=== PATIENT | female | born 1935 | race Two or more races ===

== ENCOUNTER 2024-05-11 16:04 | Inpatient (IN) | payer OTHER ==
[~2024-05-11] VITALS: Ht 154.9 cm; Wt 67.2 kg
[2024-05-11 16:10] VITALS: PULSE 158; RESP 22; O2SAT 95
[2024-05-11] MEDS: ADENOSINE 6 MG/2 ML INJ IV ONE (16:21)
[2024-05-11] MEDS: METOPROLOL TARTRATE 1MG/1ML-5ML VIAL IV ONE ×3 (16:22→16:26)
[2024-05-11] MEDS: AMIODARONE BOLUS KIT 100 ML IV ONE ×2 (16:25→16:27)
[2024-05-11] MEDS: fentaNYL CITRATE 100 MCG/2 ML VL IV ONE (16:33)
[2024-05-11] MEDS: MIDAZOLAM HCL 2MG/2ML 2ml VIAL (1mg/ml) IV ONE (16:34)
[2024-05-11] MEDS: fentaNYL CITRATE 100 MCG/2 ML VL ONE (16:35)
[2024-05-11] MEDS: MIDAZOLAM HCL 2MG/2ML 2ml VIAL (1mg/ml) ONE (16:36)
[2024-05-11] MEDS: AMIODARONE 450mg/250ml AE 250 ML IV SCH ×2 (17:07→23:02)
[2024-05-11 17:36] LABS: Basophils # (auto) 0.1 10 ^3/uL (0-0.2); Basophils % (auto) 0.8 % (0.0-2.0); Eosinophils # (auto) 0.1 10 ^3/uL (0-0.8); Eosinophils % (auto) 0.8 % (0.0-7.0); Hematocrit 40.5 % (36.0-46.0); Hemoglobin 14.4 g/dL (12.2-16.2); Lymphocytes # (auto) 0.6 10 ^3/uL (0.4-5.4); Lymphocytes % (auto) 7.7 % (10.0-50.0); Mean Corpuscular Hgb Conc. 35.6 g/dL (32.0-36.0); Mean Corpuscular Volume 86.9 fL (80.0-100.0); Monocytes # (auto) 0.6 10 ^3/uL (0-1.3); Monocytes % (auto) 6.8 % (0.0-12.0); Neutrophils % (auto) 83.9 % (37.0-80.0); Nucleated Red Blood Cells % 0.1 %; Red Blood Cells 4.65 10^6/uL (4.0-5.20); Red Cell Distribution Width 13.5 % (11.8-14.3); White Blood Cell 8.4 10^3/uL (4.4-10.8)
[2024-05-11 17:56] LABS: Alanine Aminotransferase 54 U/L (7-40); Alkaline Phosphatase 58 U/L (46-116); Anion Gap 8 (5-15); Aspartate Aminotransferase 28 U/L (13-40); BUN/Creatinine Ratio 32.9 (10.0-20.0); Blood Urea Nitrogen 23 mg/dL (9-23); Calcium 9.1 mg/dL (8.5-10.1); Carbon Dioxide 24 mmol/L (20-30); Chloride 110 mmol/L (98-107); Glucose 159 mg/dL (74-106); Magnesium 1.5 mg/dL (1.6-2.6); Potassium 2.9 mmol/L (3.5-5.1); Sodium 142 mmol/L (136-145)
[2024-05-11 17:57] LABS: Albumin 4.2 g/dL (3.2-4.8); Bilirubin, Total 0.6 mg/dL (0.2-1.0); INR 1.04 (0.9-1.15); Partial Thromboplastin Time 24.2 SEC (24.5-34.5); Total Protein 5.8 g/dL (5.7-8.2)
[2024-05-11] MEDS: MAGNESIUM SULFATE 1GM/100ML 100 ML IV ONE ×2 (18:21→23:35)
[2024-05-11] MEDS: POTASSIUM PHOSPHATE 22 MEQ in SODIUM CHL 0.9% 100 ML IV ONE (19:51)
[2024-05-11 19:56] VITALS: PULSE 93; RESP 25; O2SAT 95
[2024-05-11] MEDS: RIVAROXABAN 2.5 MG TAB PO SCH (22:23)
[2024-05-11] MEDS ORDERED: MORPHINE SULFATE INJ 2 MG/ml SYRG IV PRN ×2 (23:00)
[2024-05-11] MEDS ORDERED: ONDANSETRON HCL 4 MG/2 ML VIAL IV PRN (23:00)
[2024-05-11] MEDS ORDERED: ACETAMINOPHEN 325 MG TAB PO PRN (23:00)
[2024-05-11] MEDS ORDERED: NITROGLYCERIN 0.4 MG SL TAB SL PRN (23:00)
[2024-05-11] MEDS: SOD CHL 0.45% 1,000 ML IV SCH (23:35)
[2024-05-11] MEDS: dilTIAZem 25 MG/5 ML VIAL IV ONE (23:38)
[2024-05-12] VITALS (30 sets, daily range): BP systolic 104–154; BP diastolic 50–102; PULSE 69–104; RESP 9–29; TEMP 97.3–98.8; O2SAT 91–98
[2024-05-12] MEDS: dilTIAZem 25 MG/5 ML VIAL IV ONE (00:19)
[2024-05-12] MEDS: METOPROLOL TARTRATE 25 MG TAB PO SCH (00:41)
[2024-05-12 02:03] LABS: Basophils # (auto) 0.1 10 ^3/uL (0-0.2); Basophils % (auto) 0.7 % (0.0-2.0); Eosinophils # (auto) 0.1 10 ^3/uL (0-0.8); Eosinophils % (auto) 0.7 % (0.0-7.0); Hematocrit 39.9 % (36.0-46.0); Hemoglobin 14.3 g/dL (12.2-16.2); Lymphocytes % (auto) 9.1 % (10.0-50.0); Mean Corpuscular Hemoglobin 31.1 pg (28.0-32.0); Mean Corpuscular Hgb Conc. 35.9 g/dL (32.0-36.0); Mean Corpuscular Volume 86.6 fL (80.0-100.0); Monocytes # (auto) 0.7 10 ^3/uL (0-1.3); Monocytes % (auto) 6.8 % (0.0-12.0); Neutrophils # (auto) 8.7 10 ^3/uL (1.6-8.6); Neutrophils % (auto) 82.7 % (37.0-80.0); Nucleated Red Blood Cells % 0.2 %; Red Cell Distribution Width 13.8 % (11.8-14.3); White Blood Cell 10.5 10^3/uL (4.4-10.8)
[2024-05-12 02:11] LABS: Chloride 109 mmol/L (98-107); Potassium 2.8 mmol/L (3.5-5.1); Sodium 141 mmol/L (136-145)
[2024-05-12 02:12] LABS: Anion Gap 10 (5-15); Calcium 8.8 mg/dL (8.7-10.4); Carbon Dioxide 22 mmol/L (20-30)
[2024-05-12 02:17] LABS: BUN/Creatinine Ratio 20.3 (10.0-20.0); Blood Urea Nitrogen 12 mg/dL (9-23); Glucose 158 mg/dL (74-106)
[2024-05-12] MEDS: POTASSIUM CHL 20 Meq TABLET PO ONE (03:27)
[2024-05-12] MEDS: AMIODARONE HCL (50 MG/ ML) 3 ML VIAL IV ONE (03:57)
[2024-05-12 07:49] LABS: Potassium 3.4 mmol/L (3.5-5.1)
[2024-05-12 07:57] LABS: Magnesium 1.7 mg/dL (1.6-2.6)
[2024-05-12] MEDS: PANTOPRAZOLE 40 MG/10 ML VIAL INJ IV SCH (10:23)
[2024-05-12] MEDS: AMIODARONE 450mg/250ml AE 250 ML IV SCH (11:04)
[2024-05-12] MEDS: MAGNESIUM SULFATE 1GM/100ML 100 ML IV ONE (12:09)
[2024-05-12] MEDS: AMIODARONE HCL 200 MG TAB PO ONE (12:10)
[2024-05-12] MEDS: APIXABAN 2.5 MG TAB PO ONE (14:41)
[2024-05-12] MEDS: AMIODARONE HCL 200 MG TAB PO SCH (22:00)
[2024-05-12] MEDS: APIXABAN 2.5 MG TAB PO SCH (22:29)
[2024-05-12] MEDS ORDERED: RIVAROXABAN 2.5 MG TAB PO SCH (22:30)
[2024-05-13] VITALS (15 sets, daily range): BP systolic 99–153; BP diastolic 58–96; PULSE 78–142; RESP 19–37; TEMP 97.2–98.4; O2SAT 86–97
[2024-05-13] MEDS: DIGOXIN (250MCG/ML) 2 ML AMPULE ONE (05:26)
[2024-05-13 05:27] LABS: Basophils # (auto) 0.1 10 ^3/uL (0-0.2); Basophils % (auto) 0.4 % (0.0-2.0); Eosinophils # (auto) 0 10 ^3/uL (0-0.8); Eosinophils % (auto) 0.2 % (0.0-7.0); Hematocrit 42.8 % (36.0-46.0); Hemoglobin 15.3 g/dL (12.2-16.2); Lymphocytes # (auto) 0.6 10 ^3/uL (0.4-5.4); Lymphocytes % (auto) 4.9 % (10.0-50.0); Mean Corpuscular Hemoglobin 30.8 pg (28.0-32.0); Mean Corpuscular Hgb Conc. 35.8 g/dL (32.0-36.0); Mean Corpuscular Volume 85.8 fL (80.0-100.0); Monocytes # (auto) 0.7 10 ^3/uL (0-1.3); Monocytes % (auto) 5.2 % (0.0-12.0); Neutrophils # (auto) 11.6 10 ^3/uL (1.6-8.6); Neutrophils % (auto) 89.3 % (37.0-80.0); Red Blood Cells 4.99 10^6/uL (4.0-5.20); Red Cell Distribution Width 13.6 % (11.8-14.3); White Blood Cell 12.9 10^3/uL (4.4-10.8)
[2024-05-13] MEDS: dilTIAZem 25 MG/5 ML VIAL IV ONE ×4 (05:30→06:04)
[2024-05-13 05:44] LABS: Anion Gap 8 (5-15); Calcium 8.9 mg/dL (8.5-10.1); Carbon Dioxide 26 mmol/L (20-30); Chloride 105 mmol/L (98-107); Potassium 2.8 mmol/L (3.5-5.1); Sodium 139 mmol/L (136-145)
[2024-05-13 05:49] LABS: BUN/Creatinine Ratio 13.6 (10.0-20.0); Blood Urea Nitrogen 8 mg/dL (9-23); Glucose 153 mg/dL (74-106)
[2024-05-13] MEDS: AMIODARONE HCL (50 MG/ ML) 3 ML VIAL IV ONE ×3 (06:05→20:11)
[2024-05-13] MEDS: AMIODARONE 450mg/250ml AE 250 ML IV SCH (06:14)
[2024-05-13] MEDS: POTASSIUM CHL 20MEQ/100ML 100 ML IV SCH (07:28)
[2024-05-13] MEDS: HYDROcodone-ACET 5/325MG TAB PO PRN (09:26)
[2024-05-13] MEDS: POTASSIUM CHLORIDE 40 MEQ, LIDOCAINE 1% (LOCAL ANESTH.) 4 ML in SODIUM CHL 0.9% 250 ML IV ONE (09:28)
[2024-05-13] MEDS ORDERED: AMIODARONE 450mg/250ml AE 250 ML IV SCH (12:15)
[2024-05-13] MEDS: METOPROLOL SUCCINATE XL 50 MG TAB PO ONE (15:03)
[2024-05-13] MEDS: hydrALAZINE HCL 20 MG/ML VL IV PRN (16:14)
[2024-05-13] MEDS: DOCUSATE SOD 100 MG CAP PO PRN (17:28)
[2024-05-14] VITALS (20 sets, daily range): BP systolic 123–167; BP diastolic 62–92; PULSE 61–112; RESP 16–35; TEMP 97.9–98.8; O2SAT 90–99
[2024-05-14] MEDS: AMIODARONE HCL (50 MG/ ML) 3 ML VIAL IV ONE ×2 (05:33→05:40)
[2024-05-14 05:51] LABS: Eosinophils # (auto) 0 10 ^3/uL (0-0.8); Eosinophils % (auto) 0.2 % (0.0-7.0); Lymphocytes # (auto) 0.6 10 ^3/uL (0.4-5.4); Monocytes # (auto) 0.9 10 ^3/uL (0-1.3)
[2024-05-14 06:29] LABS: Anion Gap 7 (5-15); Calcium 9.1 mg/dL (8.5-10.1); Carbon Dioxide 24 mmol/L (20-30); Chloride 105 mmol/L (98-107); Potassium 3.2 mmol/L (3.5-5.1); Sodium 136 mmol/L (136-145)
[2024-05-14 06:35] LABS: BUN/Creatinine Ratio 14.8 (10.0-20.0); Blood Urea Nitrogen 8 mg/dL (9-23); Glucose 145 mg/dL (74-106)
[2024-05-14 07:21] LABS: Basophils # (auto) 0.1 10 ^3/uL (0-0.2); Basophils % (auto) 0.4 % (0.0-2.0); Hematocrit 42.1 % (36.0-46.0); Hemoglobin 14.7 g/dL (12.2-16.2); Lymphocytes % (auto) 4.4 % (10.0-50.0); Mean Corpuscular Hemoglobin 30.5 pg (28.0-32.0); Mean Corpuscular Volume 87.3 fL (80.0-100.0); Monocytes % (auto) 6.2 % (0.0-12.0); Neutrophils # (auto) 12.5 10 ^3/uL (1.6-8.6); Neutrophils % (auto) 88.8 % (37.0-80.0); Red Blood Cells 4.82 10^6/uL (4.0-5.20); Red Cell Distribution Width 13.8 % (11.8-14.3); White Blood Cell 14.1 10^3/uL (4.4-10.8)
[2024-05-14] MEDS: METOPROLOL TARTRATE 25 MG TAB PO SCH (09:52)
[2024-05-14] MEDS: MAGNESIUM OXIDE 400 MG TAB PO ONE (14:45)
[2024-05-14] MEDS: POTASSIUM CHL 20 Meq TABLET PO ONE (14:45)
[2024-05-14] MEDS: FUROSEMIDE 40 MG/4 ML VIAL IV ONE (15:51)
[2024-05-14] MEDS: MAGNESIUM SULFATE 1GM/100ML 100 ML IV SCH (15:52)
[2024-05-14] MEDS: AMIODARONE 450mg/250ml AE 250 ML IV SCH (15:53)
[2024-05-14] MEDS: HYALURONIDASE 150 UNIT/1 ML SUBCUT ONE (17:19)
[2024-05-14] MEDS: POTASSIUM CHLORIDE 40 MEQ, LIDOCAINE 1% (LOCAL ANESTH.) 4 ML in SODIUM CHL 0.9% 250 ML IV ONE (20:04)
[2024-05-15] VITALS (7 sets, daily range): BP systolic 132–171; BP diastolic 68–94; PULSE 59–96; RESP 16–20; TEMP 97.4–98.6; O2SAT 90–94
[2024-05-15 05:57] LABS: Basophils # (auto) 0.1 10 ^3/uL (0-0.2); Basophils % (auto) 0.6 % (0.0-2.0); Eosinophils # (auto) 0 10 ^3/uL (0-0.8); Eosinophils % (auto) 0.3 % (0.0-7.0); Hematocrit 40.6 % (36.0-46.0); Hemoglobin 14.3 g/dL (12.2-16.2); Lymphocytes # (auto) 0.8 10 ^3/uL (0.4-5.4); Lymphocytes % (auto) 5.3 % (10.0-50.0); Mean Corpuscular Hemoglobin 30.5 pg (28.0-32.0); Mean Corpuscular Hgb Conc. 35.2 g/dL (32.0-36.0); Mean Corpuscular Volume 86.8 fL (80.0-100.0); Monocytes # (auto) 0.8 10 ^3/uL (0-1.3); Neutrophils # (auto) 12.4 10 ^3/uL (1.6-8.6); Neutrophils % (auto) 87.8 % (37.0-80.0); Nucleated Red Blood Cells % 0.2 %; Red Blood Cells 4.68 10^6/uL (4.0-5.20); Red Cell Distribution Width 14.1 % (11.8-14.3); White Blood Cell 14.1 10^3/uL (4.4-10.8)
[2024-05-15 06:11] LABS: Chloride 105 mmol/L (98-107); Potassium 3.1 mmol/L (3.5-5.1)
[2024-05-15 06:12] LABS: Calcium 9.1 mg/dL (8.5-10.1)
[2024-05-15 06:17] LABS: BUN/Creatinine Ratio 20.3 (10.0-20.0); Blood Urea Nitrogen 12 mg/dL (9-23); Glucose 144 mg/dL (74-106)
[2024-05-15 06:20] LABS: Carbon Dioxide 26 mmol/L (20-30)
[2024-05-15 07:05] LABS: Anion Gap 5 (5-15); Sodium 136 mmol/L (136-145)
[2024-05-15] MEDS ORDERED: AMLO1TAB22 PO (16:34)
[2024-05-15] MEDS ORDERED: CLON0.1T PO (16:34)
[2024-05-15] MEDS ORDERED: MET25T PO (16:34)
[2024-05-15] MEDS ORDERED: NAP500T PO (16:34)
[2024-05-15] MEDS ORDERED: POTA-228 PO (16:34)
[2024-05-15] MEDS ORDERED: HYDR25TA4 PO (16:34)
[2024-05-15] MEDS: AMIODARONE HCL 200 MG TAB PO ONE (21:28)
[2024-05-16 01:00] VITALS: BP 163/81; PULSE 80; RESP 18; TEMP 97.3; O2SAT 96
[2024-05-16 05:00] VITALS: BP 173/87; PULSE 89; RESP 18; TEMP 97.3; O2SAT 95
[2024-05-16 06:57] LABS: Chloride 102 mmol/L (98-107); Potassium 3.1 mmol/L (3.5-5.1); Sodium 137 mmol/L (136-145)
[2024-05-16 06:58] LABS: Anion Gap 7 (5-15); Calcium 9.3 mg/dL (8.7-10.4); Carbon Dioxide 28 mmol/L (20-30)
[2024-05-16 07:03] LABS: Blood Urea Nitrogen 12 mg/dL (9-23); Glucose 136 mg/dL (74-106)
[2024-05-16 07:33] LABS: Basophils # (auto) 0.1 10 ^3/uL (0-0.2); Basophils % (auto) 0.7 % (0.0-2.0); Eosinophils # (auto) 0 10 ^3/uL (0-0.8); Eosinophils % (auto) 0.3 % (0.0-7.0); Hematocrit 43.4 % (36.0-46.0); Hemoglobin 15.2 g/dL (12.2-16.2); Lymphocytes # (auto) 0.5 10 ^3/uL (0.4-5.4); Lymphocytes % (auto) 3.8 % (10.0-50.0); Mean Corpuscular Hemoglobin 30.4 pg (28.0-32.0); Mean Corpuscular Hgb Conc. 35.1 g/dL (32.0-36.0); Mean Corpuscular Volume 86.8 fL (80.0-100.0); Monocytes # (auto) 0.7 10 ^3/uL (0-1.3); Monocytes % (auto) 4.9 % (0.0-12.0); Neutrophils # (auto) 12.7 10 ^3/uL (1.6-8.6); Neutrophils % (auto) 90.3 % (37.0-80.0); Nucleated Red Blood Cells % 0.1 %; Red Cell Distribution Width 13.9 % (11.8-14.3); White Blood Cell 14.1 10^3/uL (4.4-10.8)
[2024-05-16 08:00] VITALS: PULSE 109
[2024-05-16 09:00] VITALS: BP 170/65; PULSE 92; RESP 16; TEMP 98.3; O2SAT 93
[2024-05-16] MEDS: AMIODARONE HCL 200 MG TAB PO SCH (10:02)
[2024-05-16 13:00] VITALS: BP 181/88; PULSE 74; RESP 16; TEMP 98.9; O2SAT 90
[2024-05-16] MEDS: POTASSIUM CHL 20 Meq TABLET PO ONE (14:43)
[2024-05-16] MEDS ORDERED: AMIO200T13 PO (16:30)
[2024-05-16] MEDS ORDERED: APIX2.5T PO (16:30)
[2024-05-16] MEDS ORDERED: MET25T PO (16:30)
[2024-05-16 16:34] VITALS: BP 169/79; PULSE 61; RESP 18; TEMP 98; O2SAT 9
== END 2024-05-16 20:30 | disposition hospice, home (50) | DRG 291 ==
LOC: EDBD 16:04 → ER 16:12 → TELE 23:10 → DOU IN ICU 23:10 → TELE-WESTW 05-14 17:40
PROVIDERS: ADMIT Nurse Practitioner Family; ATTEND Internal Medicine
PROC: 5A2204Z Restoration of Cardiac Rhythm, Single (ICD-10-PCS; principal; 2024-05-11)
DX: I11.0 Hypertensive heart disease with heart failure (principal); I50.43 Acute on chronic combined systolic (congestive) and diastolic (congestive) heart failure; I48.20 Chronic atrial fibrillation, unspecified; J98.11 Atelectasis; I48.92 Unspecified atrial flutter; I47.10 Supraventricular tachycardia, unspecified; E87.6 Hypokalemia; E78.5 Hyperlipidemia, unspecified; E83.42 Hypomagnesemia; I34.0 Nonrheumatic mitral (valve) insufficiency
CPT/HCPCS: 36415; 71045; 80048; 80053; 82962; 83735; 83880; 84132; 84443; 84484; 85025; 85610; 85730; 87081; 93005; 93306; 99291; C9113; G0378; J2001; J2250; J3470; J3480

== ENCOUNTER 2025-06-23 14:03 | Inpatient (IN) | payer OTHER ==
[~2025-06-23] VITALS: Ht 157.5 cm; Wt 59.2 kg
[~2025-06-23 14:03] MED LIST: AMIO200T13 PO; APIX2.5T PO; MET25T PO
[2025-06-23] MEDS ORDERED: SODIUM CHLORIDE 0.9% 1,000 ML IV ONE (14:15)
--- NOTE | 2025-06-23 14:19 | ED.PDOC ---
GI ASSESSMENT HPI Comments This is an 89 year-olf female, with a PMHX of HTN, Breast cancer, and Neuropathy, who presents to the ED via EMS with a chief complaint of RLQ abdominal pain with associated N/V for X3 days. Patient reports RLQ abdominal pain radiates throughout lower abdomen with no associated alleviating factors. Per EMS, patients vitals are stable with a normal temperature of 97.8F. Patient has no further complaints at this time and otherwise denies further associated symptoms of chest pain, dizziness, back pain, diarrhea, fever, or chills. Chief Complaint: N/V Time Seen by MD: 14:11 Primary Care Provider: UNKNOWN Reviewed Notes: Repeater Operator Notes, Medications, Allergies Allergies: Coded Allergies: NO KNOWN ALLERGIES (Unverified , 05/11/24) Home Meds Active Scripts Metoprolol Tartrate (Lopressor) 25 Mg Tb, 50 MG PO BID for 30 Days, #120 TAB Prov:LISSY MINOR MD 05/16/24 Apixaban Base (ELIQUIS) 2.5 Mg Tab, 2.5 MG PO BID, #60 TAB Prov:LISSY MINOR MD 05/16/24 Amiodarone HCl (Amiodarone HCl) 200 Mg Tab, 200 MG PO BID, #60 TAB Prov:LISSY MINOR MD 05/16/24 Information Source: Patient, Emergency Med Personnel Mode of Arrival: EMS Timing: Days Duration: Since onset Prehospital treatment: 12 Lead EKG, Other (Temp 97.8F) Severity: Moderate Associated sign and symptoms: Nausea, Vomiting, Abdominal Pain Past Medical History PAST MEDICAL HISTORY: HTN Past Medical History (Other): Breast Cancer, Neuropathy Surgical History: Denies all surgeries TOBACCO SAMPLE P[employer]ER History: Unknown Family History Family History: Unknown Social History Smoker: Non-Smoker Alcohol: Denies ETOH Use Drugs: Denies Drug Use Lives In: Home Constitutional: denies: chills, diaphoresis, fatigue, fever, malaise, sweats, weakness, others EENTM: denies: blurred vision, double vision, ear bleeding, ear discharge, ear drainage, ear pain, ear ringing, eye pain, eye redness, hearing loss, mouth pain, mouth swelling, nasal discharge, nose bleeding, nose congestion, nose pain, photophobia, tearing, throat pain, throat swelling, voice changes, others Respiratory: denies: cough, hemoptysis, orthopnea, SOB at rest, shortness of breath, SOB with excertion, stridor, wheezing, others Cardiovascular: denies: chest pain, dizzy spells, diaphoresis, Dyspnea on exertion, edema, irregular heart beat, left arm pain, lightheadedness, palpitations, PND, syncope, others Gastrointestinal: reports: abdominal pain, nausea, vomiting; denies: abdomen distended, blood streaked bowels, constipated, diarrhea, dysphagia, difficulty swallowing, hematemesis, melena, poor appetite, poor fluid intake, rectal bleeding, rectal pain, others Genitourinary: denies: abnormal vagina bleeding, burning, dyspareunia, dysuria, flank pain, frequency, hematuria, incontinence, pain, , vagina discharge, urgency, others Neurological: denies: dizziness, fainting, headache, left sided numbness, left sided weakness, numbness, paresthesia, pre-existing deficit, right sided numbness, right sided weakness, seizure, speech problems, tingling, tremors, weakness, others Musculoskeletal: denies: back pain, gout, joint pain, joint swelling, muscle pain, muscle stiffness, neck pain, others Integumetry: denies: bruises, change in color, change in hair/nails, dryness, laceration, lesions, lumps, rash, wounds, others Allergic/Immunocompromised: denies: Difficulty Healing, Frequent Infections, Hives, Itching, others Hematologic/Lymphatic: denies: anemia, blood clots, easy bleeding, easy bruising, swollen glands, others Endocrine: denies: excessive hunger, excessive sweating, excessive thirst, excessive urination, flushing, intolerance to cold, intolerance to heat, unexplained weight gain, unexplained weight loss, others Psychiatric: denies: anxiety, bipolar disorder, depression, hopeless, panic disorder, schizophrenia, sleepless, suicidal, others All Other Systems: Reviewed and Negative Physical Exam General Appearance: Moderate Distress HEENT: Normal ENT Inspection, Pharynx Normal, TMs Normal Neck: Full Range of Motion, Non-Tender, Normal, Normal Inspection Respiratory: Chest Non-Tender, Lungs Clear, No Accessory Muscle Use, No Respiratory Distress, Normal Breath Sounds Cardiovascular: No Edema, No JVD, No Murmur, No Gallop, Normal Peripheral Pulses, Regular Rate/Rhythm Breast Exam: Deferred Gastrointestinal: No Organomegaly, Non Tender, No Pulsatile Mass, Normal Bowel Sounds, Soft Genitalia: Deferred Pelvic: Deferred Rectal: Deferred Extremities: No calf tenderness, Normal capillary refill, Normal inspection, Normal range of motion, Non-tender, No pedal edema Musculoskeletal : Apperance: Normal Neurologic: Alert, retail salesman II-XII nml as Tested, No Motor Deficits, Normal Affect, Normal Mood, No Sensory Deficits Cerebellar Function: NOT DONE Reflexes: NOT DONE Skin: Dry, Normal Color, Warm Peripheral Pulses: 3+ Radial (R), 3+ Radial (L) Lymphatic: No Adenopathy Was a procedure done? Was a procedure done?: No GI differential Dx Differential Diagnosis: Constipation, Diverticular disease, Esophagitis, Gastritis/PUD, Gastroenteritis, UTI, Food Poisoning, Bacterial, Parasitic, Viral X-Ray, Labs, Meds, VS Vital Signs Date Time Temp Pulse Resp B/P (MAP) Pulse Ox O2 Delivery O2 Flow Rate FiO2 06/23/25 17:00 99.3 98 17 196/99 (131) 99 99.3 06/23/25 16:07 199/93 06/23/25 15:07 192/89 06/23/25 14:59 74 17 95 Room Air 06/23/25 14:59 98.5 74 17 182/93 (122) 95 98.5 192/89 (123) 06/23/25 14:42 84 06/23/25 14:15 97.8 82 22 172/92 99 97.8 06/23/25 14:15 97.8 72 22 172/92 (118) 99 97.8 Lab Test 06/23/25 14:17 Range/Units White Blood Count 10.8 4.4-10.8 10^3/uL Red Blood Count 5.15 4.0-5.20 10^6/uL Hemoglobin 16.1 12.2-16.2 g/dL Hematocrit 45.0 36.0-46.0 % Mean Corpuscular Volume 87.5 80.0-100.0 fL Mean Corpuscular Hemoglobin 31.4 28.0-32.0 pg Mean Corpuscular Hemoglobin Concent 35.8 32.0-36.0 g/dL Red Cell Distribution Width 14.0 11.8-14.3 % Platelet Count 191 140-450 10^3/uL Mean Platelet Volume 7.1 6.9-10.8 fL Neutrophils (%) (Auto) 87.3 H 37.0-80.0 % Lymphocytes (%) (Auto) 5.9 L 10.0-50.0 % Monocytes (%) (Auto) 6.1 0.0-12.0 % Eosinophils (%) (Auto) 0.1 0.0-7.0 % Basophils (%) (Auto) 0.6 0.0-2.0 % Neutrophils # (Auto) 9.5 H 1.6-8.6 10 ^3/uL Lymphocytes # (Auto) 0.6 0.4-5.4 10 ^3/uL Monocytes # (Auto) 0.7 0-1.3 10 ^3/uL Eosinophils # (Auto) 0 0-0.8 10 ^3/uL Basophils # (Auto) 0.1 0-0.2 10 ^3/uL Nucleated Red Blood Cells 0.3 % Sodium Level 143 136-145 mmol/L Potassium Level 2.7 L 3.5-5.1 mmol/L Chloride Level 100 98-107 mmol/L Carbon Dioxide Level 30 20-31 mmol/L Anion Gap 13 5-15 Blood Urea Nitrogen 17 9-23 mg/dL Creatinine 0.76 0.550-1.02 mg/dL Glomerular Filtration Rate Calc 76 >90 mL/min BUN/Creatinine Ratio 22.4 H 10.0-20.0 Serum Glucose 150 H 74-106 mg/dL Calcium Level 9.7 8.7-10.4 mg/dL Current Medications Medications (Trade) Dose Ordered Sig/Dagoberto Route Start Time Stop Time Status Last Admin Sodium Chloride 500 ml @ 500 mls/hr Q1H ONCE IV 06/23/25 14:30 06/23/25 15:29 DC 06/23/25 14:42 Clonidine HCl (Catapres Tablet) 0.2 mg ONCE ONCE PO 06/23/25 15:15 06/23/25 15:16 DC 06/23/25 15:07 Potassium Bicarbonate (Klor-Con/Ef) 50 meq ONCE ONCE PO 06/23/25 15:30 06/23/25 15:31 DC 06/23/25 15:21 Ondansetron HCl (Zofran) 4 mg ONCE ONCE IV 06/23/25 16:45 06/23/25 16:46 DC 06/23/25 17:00 Patient alert. Complaining of nausea vomiting. WBC within normal limits. Vitals stable. Hemoglobin within normal limits. She just had another vomiting episode in the ER. Establish intravenous access. Was given fluids. Blood pressure elevated. Was given clonidine. Potassium is low. Was given potassium. CT scan of the abdomen reviewed does show colitis. Was given Zosyn. Explained to the patient. Continue monitoring. Time of 1ST Reevaluation: 14:58 Reevaluation 1ST: Unchanged Patient Education/Counseling: Diagnosis, Treatment Family Education/Counseling: No Family Present SEPSIS Sepsis Screen Physician Orders Urinalysis (06/23/25 14:10) Electrocardigram (06/23/25 14:39) Ct Ab Pel Wo Con-No Oral Or Iv (06/23/25 16:26) Vital Signs Date Time Temp Pulse Resp B/P (MAP) Pulse Ox O2 Delivery O2 Flow Rate FiO2 06/23/25 17:00 99.3 98 17 196/99 (131) 99 99.3 06/23/25 16:07 199/93 06/23/25 15:07 192/89 06/23/25 14:59 74 17 95 Room Air 06/23/25 14:59 98.5 74 17 182/93 (122) 95 98.5 192/89 (123) 06/23/25 14:42 84 06/23/25 14:15 97.8 82 22 172/92 99 97.8 06/23/25 14:15 97.8 72 22 172/92 (118) 99 97.8 Laboratory Tests Test 06/23/25 14:17 White Blood Count 10.8 10^3/uL (4.4-10.8) Medications Medications Dose Ordered Sig/Dagoberto Route Start Time Stop Time Status Last Admin Dose Admin Clonidine HCl 0.2 mg ONCE ONCE PO 06/23/25 15:15 06/23/25 15:16 DC 06/23/25 15:07 Ondansetron HCl 4 mg ONCE ONCE IV 06/23/25 16:45 06/23/25 16:46 DC 06/23/25 17:00 Potassium Bicarbonate 50 meq ONCE ONCE PO 06/23/25 15:30 06/23/25 15:31 DC 06/23/25 15:21 Sodium Chloride 500 ml @ 500 mls/hr Q1H ONCE IV 06/23/25 14:30 06/23/25 15:29 DC 06/23/25 14:42 Departure 1 Departure Time of Disposition: 16:25 Impression: Primary Impression: Hypokalemia Additional Impressions: Nausea & vomiting Qualified Codes: R11.2 - Nausea with vomiting, unspecified Uncontrolled diabetes mellitus Qualified Codes: E13.65 - Other specified diabetes mellitus with hyperglycemia Non-specific colitis Disposition: ADMITTED INPATIENT Admit to: Med Surg Condition: Guarded Critical Care Note Critical Care Time?: No Stability Stability form required: No Heart Score Heart Score: Heart Score Response (Comments) Value History Slightly Suspicious 0 EKG N/A 0 Age >65 2 Risk Factors 1 or 2 risk factors 1 Troponin Normal limit 0 Total 3 I personally scribed for RAIZA BUENROSTRO MD ([facility]) on 06/23/25 at 14:19. Electronically submitted by Ary Mccall ([facility]). RAIZA BUENROSTRO MD Jun 23, 2025 14:19
[2025-06-23 14:31] LABS: Hematocrit 45.0 % (36.0-46.0); Hemoglobin 16.1 g/dL (12.2-16.2); Mean Corpuscular Hemoglobin 31.4 pg (28.0-32.0); Mean Corpuscular Volume 87.5 fL (80.0-100.0); Nucleated Red Blood Cells % 0.3 %
[2025-06-23] MEDS: SODIUM CHLORIDE 0.9% 500 ML IV ONE (14:42)
[2025-06-23 14:43] LABS: Chloride 100 mmol/L (98-107); Sodium 143 mmol/L (136-145)
[2025-06-23 14:44] LABS: Anion Gap 13 (5-15); Calcium 9.7 mg/dL (8.7-10.4); Carbon Dioxide 30 mmol/L (20-31)
[2025-06-23 14:49] LABS: BUN/Creatinine Ratio 22.4 (10.0-20.0); Blood Urea Nitrogen 17 mg/dL (9-23)
[2025-06-23 14:50] LABS: Glucose 150 mg/dL (74-106); Potassium 2.7 mmol/L (3.5-5.1)
[2025-06-23] MEDS: POTASSIUM EFFERVESENT TAB 25 MEQ PO ONE (15:21)
[2025-06-23] MEDS: ONDANSETRON HCL 4 MG/2 ML VIAL IV ONE (17:00)
--- NOTE | 2025-06-23 17:04 | DVH ---
Exam: CT CT AB PEL WO CON-NO ORAL OR IV History: nv Comparison Study: None TECHNIQUE: Multidetector CT of the abdomen was performed from lung bases to pubic symphysis. Imaging was performed without IV contrast. Axial, coronal and sagittal multiplanar reformats were obtained fr om the axial data set by the technologist. Radiation Dose Information: CT Dose: CTDI volume is 7.07 mGy. Dose-length product is 301.02 mGy*cm FINDINGS: Evaluation of solid organs is limited due to lack of intravenous contrast use. Findings: Lung Bases: Bibasilar airspace disease no prior studies for comparison. Normal heart size. No pleura l or pericardial effusion. Liver: The liver is normal in size. No focal lesions. Gallbladder and Biliary Tree: Unremarkable Spleen: Spleen measures 14.8 cm long consistent with splenomegaly. Pancreas: The pancreas is grossly normal in appearance. Adrenal Glands: Unremarkable Kidneys: Kidneys are grossly normal without calculi or hydronephrosis. Bladder: Grossly unremarkable for degree of distention. Bowel: The stomach is grossly normal in appearance. Small bowel and colon are normal in caliber and d istribution. Mild thickening of the wall of the colon measuring 8-9 mm. There is also stool in the co patricia. The appendix is not visualized; however, no secondary findings of acute appendicitis identified. Ascites: Absent Lymphadenopathy: No mesenteric, retroperitoneal or periportal lymphadenopathy. Abdominal Wall and Mesentery: Unremarkable. Vasculature: The visualized abdominal aorta is normal in size and caliber. Evaluation of abdominal a nd pelvic vessels is limited due to lack of intravenous contrast. Pelvic Organs: Unremarkable Musculoskeletal: No aggressive focal bony lesions, acute fractures or dislocation. Soft tissues: Unremarkable IMPRESSION: 1. Thickening of the wall of the colon measuring 8-9 mm with stool in the lumen. Questionable colitis . Correlate with the clinical setting. 2. Splenomegaly with the spleen measuring 14.8 cm long. HS:Y Radiation optimization: All CT scans at this facility use at least one of these dose optimization argelia hniques: automated exposure control mA and/or kV adjustment per patient size (includes targeted exam s where dose is matched to clinical indication) or iterative reconstruction.
[2025-06-23] MEDS: PIPERACILLIN-TAZOB 3.375GM 100 ML IV ONE (17:33)
[2025-06-23] MEDS ORDERED: MORPHINE SULFATE INJ 2 MG/ml SYRG IV PRN (17:45)
[2025-06-23] MEDS ORDERED: ACETAMINOPHEN 325 MG TAB PO PRN (17:45)
[2025-06-23] MEDS ORDERED: NITROGLYCERIN 0.4 MG SL TAB SL PRN (17:45)
--- NOTE | 2025-06-23 17:45 | DVHHP2 ---
History of Present Illness Reason for Visit: Abdominal pain nausea vomiting for last three days History of Present Illness 89-year-old female with a known history of hypertension, known history of breast cancer status post chemoradiation in the past presented to the hospital with abdominal pain nausea vomiting generalized weakness found to have colitis. Patient currently still complaining of nausea abdominal pain denies any vomiting no fever no chills. Denies any previous episode of similar kind. Cardiovascular: HTN Past Surgical History: Other (Left breast lumpectomy) Family History: None Smoke: No ALCOHOL: none Drugs: None Review of Systems Review of Systems Other review of system were negative except mentioned above. 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0 % Basophils (%) (Auto) 0.6 0.0-2.0 % Neutrophils # (Auto) 9.5 H 1.6-8.6 10 ^3/uL Lymphocytes # (Auto) 0.6 0.4-5.4 10 ^3/uL Monocytes # (Auto) 0.7 0-1.3 10 ^3/uL Eosinophils # (Auto) 0 0-0.8 10 ^3/uL Basophils # (Auto) 0.1 0-0.2 10 ^3/uL Nucleated Red Blood Cells 0.3 % Sodium Level 143 136-145 mmol/L Potassium Level 2.7 L 3.5-5.1 mmol/L Chloride Level 100 98-107 mmol/L Carbon Dioxide Level 30 20-31 mmol/L Anion Gap 13 5-15 Blood Urea Nitrogen 17 9-23 mg/dL Creatinine 0.76 0.550-1.02 mg/dL Glomerular Filtration Rate Calc 76 >90 mL/min BUN/Creatinine Ratio 22.4 H 10.0-20.0 Serum Glucose 150 H 74-106 mg/dL Calcium Level 9.7 8.7-10.4 mg/dL SEPSIS Sepsis Screen Date sepsis recognized/suspect: Jun 23, 2025 Time Sepsis recognized/suspect: 1414 Recent Procedure: No On Antibiotic Therapy: No Respiratory Rate >20: Yes Heart Rate >90: No Temp<36 C (96.8 F) or >38.3 C: No SBP <90 or MAP <65 mmHG: No New Acute Mental Status Change: No Is the patient on CPAP, BIPAP,: No Physician Orders Urinalysis (06/23/25 14:10) Electrocardigram (06/23/25 14:39) Ct Ab Pel Wo Con-No Oral Or Iv (06/23/25 16:26) Piperacillin-Tazob 3.375gm (Zosyn 3.375g (06/23/25 17:30) Admit (06/23/25 17:39) Code Status (06/23/25 17:39) 0.9% Ns 1000 Ml (06/23/25 17:45) Hydrocodone-Acet 5/325mg Tab ([place] 5/32 (06/23/25 17:45) Ondansetron Hcl (Zofran) (06/23/25 17:45) Complete Blood Count (06/24/25 04:00) Comprehensive Metabolic Panel (06/24/25 04:00) Pt Request For Service (06/23/25 17:39) Condition: Fair (06/23/25 17:39) Enoxaparin Sodium (Lovenox) (06/24/25 10:00) Acetaminophen Tablet (Tylenol Tablet) (06/23/25 17:45) Clear Liq Diet (06/23/25 Dinner) Morphine Sulfate Injection (06/23/25 17:45) Nitroglycerin Sublingual (Ntrostat Subli (06/23/25 17:45) Morphine Sulfate Injection (06/23/25 17:45) Stat Ekg For Chest Pain (06/23/25 17:39) Notify Of Changes From Base (06/23/25 17:39) Quill Reamer For 24 Hours (06/23/25 17:39) Emergency Dysrhythmia Protocol (06/23/25 17:39) Rhythm Strips Once Every Shift (06/23/25 17:39) Oxygen By Nasal Cannula (06/23/25 17:39) Zosyn Extended Infusion (06/23/25 18:00) * [facility] Assistant To The President (06/23/25 17:39) Vital Signs Date Time Temp Pulse Resp B/P (MAP) Pulse Ox O2 Delivery O2 Flow Rate FiO2 06/23/25 17:30 92 17 167/90 (115) 99 06/23/25 17:00 99.3 98 17 196/99 (131) 99 99.3 06/23/25 16:07 199/93 06/23/25 15:07 192/89 06/23/25 14:59 74 17 95 Room Air 06/23/25 14:59 98.5 74 17 182/93 (122) 95 98.5 192/89 (123) 06/23/25 14:42 84 06/23/25 14:15 97.8 82 22 172/92 99 97.8 06/23/25 14:15 97.8 72 22 172/92 (118) 99 97.8 Laboratory Tests Test 06/23/25 14:17 White Blood Count 10.8 10^3/uL (4.4-10.8) Medications Medications Dose Ordered Sig/Dagoberto Route Start Time Stop Time Status Last Admin Dose Admin Clonidine HCl 0.2 mg ONCE ONCE PO 06/23/25 15:15 06/23/25 15:16 DC 06/23/25 15:07 0.2 MG Ondansetron HCl 4 mg ONCE ONCE IV 06/23/25 16:45 06/23/25 16:46 DC 06/23/25 17:00 4 MG Piperacillin Sod/ Tazobactam Sod 100 ml @ 100 mls/hr ONCE ONCE IV 06/23/25 17:30 06/23/25 18:29 06/23/25 17:33 100 MLS/HR Potassium Bicarbonate 50 meq ONCE ONCE PO 06/23/25 15:30 06/23/25 15:31 DC 06/23/25 15:21 50 MEQ Sodium Chloride 500 ml @ 500 mls/hr Q1H ONCE IV 06/23/25 14:30 06/23/25 15:29 DC 06/23/25 14:42 500 MLS/HR Assessment/Plan Assessment/Plan 12-year-old female with a known history of breast cancer status post lumpectomy status post chemoradiation, hypertension presented to the hospital with the abdominal pain nausea vomiting found to have 1. Colitis 2. Abdominal pain nausea vomiting discontinue 1. 3. Hypertension 4. History of breast cancer status post-chemoradiation Admit to tele IV fluids IV antibiotics GI on-call Plan discussed with: Patient My Orders Orders - LISSY MINOR MD Procedure Category Date Status Time Admit ADMIT 06/23/25 Verified 17:39 Code Status CODE 06/23/25 Verified 17:39 0.9% Ns 1000 Ml PHA 06/23/25 Verified 17:45 Hydrocodone-Acet PHA 06/23/25 Verified 5/325mg Tab ([place] 17:45 Ondansetron Hcl PHA 06/23/25 Verified (Zofran) 17:45 Complete Blood Count LAB 06/24/25 Verified 04:00 Comprehensive LAB 06/24/25 Verified Metabolic Panel 04:00 Pt Request For Service PT 06/23/25 Verified 17:39 Condition: Fair KOLE 06/23/25 Verified 17:39 Enoxaparin Sodium PHA 06/24/25 Verified (Lovenox) 10:00 Acetaminophen Tablet PHA 06/23/25 Verified (Tylenol Tablet) 17:45 Clear Liq Diet DIET 06/23/25 Verified Dinner Morphine Sulfate PHA 06/23/25 Verified Injection 17:45 Nitroglycerin PHA 06/23/25 Verified Sublingual (Ntrostat 17:45 Morphine Sulfate PHA 06/23/25 Verified Injection 17:45 Stat Ekg For Chest [facility] 06/23/25 Verified Pain 17:39 Notify Of Changes [facility] 06/23/25 Verified From Base 17:39 Quill Reamer For [facility] 06/23/25 Verified 24 Hours 17:39 Emergency Dysrhythmia [facility] 06/23/25 Verified Protocol 17:39 Rhythm Strips Once [facility] 06/23/25 Verified Every Shift 17:39 Oxygen By Nasal RT 06/23/25 Verified Cannula 17:39 Zosyn Extended PHA 06/23/25 Verified Infusion 18:00 * [facility] Assistant To The President CONS 06/23/25 Verified 17:39 Date of Service: Jun 23, 2025 Billing Provider: LISSY MINOR MD Common Visit Codes: NOT BILLABLE LISSY MINOR MD Jun 23, 2025 17:45
[2025-06-23 18:08] VITALS: PULSE 72; RESP 16; O2SAT 96
[2025-06-23] MEDS: SODIUM CHLORIDE 0.9% 1,000 ML IV SCH (18:12)
[2025-06-23] MEDS: ONDANSETRON HCL 4 MG/2 ML VIAL IV PRN (21:56)
[2025-06-23] MEDS: MORPHINE SULFATE INJ 2 MG/ml SYRG IV PRN (21:56)
[2025-06-23] MEDS: hydrALAZINE HCL 20 MG/ML VL IV ONE (23:35)
[2025-06-24] VITALS (8 sets, daily range): BP systolic 97–199; BP diastolic 61–101; PULSE 68–120; RESP 16–20; TEMP 97.8–99.4; O2SAT 92–98
[2025-06-24] MEDS: HYDROcodone-ACET 5/325MG TAB PO PRN (01:40)
[2025-06-24] MEDS: PIPERACILLIN-TAZOB 3.375GM 100 ML IV SCH (01:42)
[2025-06-24 02:33] LABS: Magnesium 1.7 mg/dL (1.6-2.6)
[2025-06-24 02:35] LABS: Potassium 2.6 mmol/L (3.5-5.1)
[2025-06-24 03:24] LABS: Hematocrit 44.4 % (36.0-46.0); Hemoglobin 15.7 g/dL (12.2-16.2); Mean Corpuscular Hemoglobin 31.3 pg (28.0-32.0); Mean Corpuscular Volume 88.5 fL (80.0-100.0); Nucleated Red Blood Cells % 0.2 %
[2025-06-24] MEDS: METOCLOPRAMIDE HCL 5MG/ml INJ 2ml VIAL IV ONE (03:47)
[2025-06-24] MEDS: POTASSIUM CHL 20 Meq TABLET PO ONE ×2 (03:50→15:21)
[2025-06-24] MEDS: POTASSIUM CHL 20MEQ/100ML 100 ML IV SCH (03:53)
--- NOTE | 2025-06-24 07:12 | ECG ---
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
[2025-06-24 08:03] LABS: Albumin 4.0 g/dL (3.2-4.8); Anion Gap 12 (5-15); BUN/Creatinine Ratio 17.4 (10.0-20.0); Blood Urea Nitrogen 12 mg/dL (9-23); Calcium 9.1 mg/dL (8.7-10.4); Carbon Dioxide 31 mmol/L (20-31); Chloride 103 mmol/L (98-107); Total Protein 5.9 g/dL (5.7-8.2)
[2025-06-24 08:04] LABS: Bilirubin, Total 1.1 mg/dL (0.2-1.0)
[2025-06-24 08:05] LABS: Alkaline Phosphatase 123 U/L (46-116); Glucose 121 mg/dL (74-106); Potassium 3.3 mmol/L (3.5-5.1); Sodium 146 mmol/L (136-145)
[2025-06-24 08:06] LABS: Alanine Aminotransferase 126 U/L (7-40)
[2025-06-24] MEDS: ENOXAPARIN SOD 30 MG/0.3 ML SYRINGE SC SCH (10:01)
[2025-06-24] MEDS: AMIODARONE HCL 200 MG TAB PO ONE (14:12)
[2025-06-24] MEDS: METOPROLOL TARTRATE 25 MG TAB PO ONE (14:12)
[2025-06-24] MEDS ORDERED: SOD CHL 0.45% WITH 20MEQ KCL 1,000 ML IV SCH (14:15)
[2025-06-24] MEDS ORDERED: DOCU-265 PO (16:28)
[2025-06-24] MEDS ORDERED: AMIO200T33 PO (16:28)
[2025-06-24] MEDS ORDERED: CLON0.3D4 PO (16:28)
[2025-06-24] MEDS ORDERED: METO-158 PO (16:28)
[2025-06-24] MEDS ORDERED: ASPI325T6 PO (16:28)
[2025-06-24] MEDS ORDERED: FURO40TA4 PO (16:28)
[2025-06-24] MEDS ORDERED: CLOP75TA70 PO (16:28)
[2025-06-24] MEDS ORDERED: LOSA-534 PO (16:28)
[2025-06-24] MEDS ORDERED: POTA-36 PO (16:28)
[2025-06-24] MEDS ORDERED: GABA-1308 PO (16:28)
--- NOTE | 2025-06-24 17:11 | DVHPN2 ---
Subjective Overnight events noted. Patient is still has diarrhea. 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 Medications Current Medications Medications Dose Ordered Sig/Dagoberto Route Start Time Stop Time Status Last Admin Dose Admin Sodium Chloride 1,000 ml @ 120 mls/hr Q8H20M IV 06/23/25 17:45 06/24/25 10:01 120 MLS/HR Acetaminophen/ Hydrocodone Bitart 1 tab Q4HP PRN PO 06/23/25 17:45 06/24/25 01:40 1 TAB Ondansetron HCl 4 mg Q4HP PRN IV 06/23/25 17:45 06/23/25 21:56 4 MG Enoxaparin Sodium 30 mg DAILY SC 06/24/25 10:00 06/24/25 10:01 30 MG Acetaminophen 650 mg Q6HP PRN PO 06/23/25 17:45 Morphine Sulfate 2 mg Q4HPRN PRN IV 06/23/25 17:45 06/24/25 02:48 2 MG Nitroglycerin 0.4 mg Q5MINP PRN SL 06/23/25 17:45 Morphine Sulfate 2 mg Q30M PRN IV 06/23/25 17:45 Piperacillin Sod/ Tazobactam Sod 100 ml @ 25 mls/hr Q8H IV 06/24/25 02:00 06/24/25 09:55 25 MLS/HR Hydralazine HCl 10 mg Q6HP PRN IV 06/24/25 03:30 Amiodarone HCl 200 mg BID PO 06/24/25 22:00 Metoprolol Tartrate 25 mg BID PO 06/24/25 22:00 Apixaban 2.5 mg BID PO 06/24/25 22:00 Future Hold Laboratory Results Laboratory Tests 06/24/25 02:04 06/24/25 06:17 Chemistry Test 06/24/25 02:04 06/24/25 06:17 Magnesium Level 1.7 mg/dL (1.6-2.6) Albumin 4.0 g/dL (3.2-4.8) Calcium Level 9.1 mg/dL (8.7-10.4) Total Protein 5.9 g/dL (5.7-8.2) LFT Test 06/24/25 06:17 Alanine Aminotransferase (ALT) 126 U/L (7-40) H Alkaline Phosphatase 123 U/L (46-116) H Aspartate Amino Transferase (AST) 87 U/L (13-40) H Total Bilirubin 1.1 mg/dL (0.2-1.0) H Assessment/Plan Assessment/Plan 89-year-old female with a known history of breast cancer status post lumpectomy status post chemoradiation, hypertension presented to the hospital with the abdominal pain nausea vomiting found to have 1. Colitis 2. Abdominal pain nausea vomiting 2/2 above 3. Hypertension 4. History of breast cancer status post-chemoradiation 5. AFib with a RVR, currently rate is improved after home medications resumed -resume home medications including amiodarone, beta juan and Eliquis Plan discussed with: Patient My Orders Orders - LISSY MINOR MD Procedure Category Date Status Time Admit ADMIT 06/23/25 Transmitted 17:39 Code Status CODE 06/23/25 Transmitted 17:39 Sodium Chloride 0.9% PHA 06/23/25 In Process 17:45 Hydrocodone-Acet PHA 06/23/25 In Process 5/325mg Tab ([place] 17:45 Ondansetron Hcl PHA 06/23/25 In Process (Zofran) 17:45 Pt Request For Service PT 06/23/25 Logged 17:39 Condition: Fair KOLE 06/23/25 In Process 17:39 Enoxaparin Sodium PHA 06/24/25 In Process (Lovenox) 10:00 Acetaminophen Tablet PHA 06/23/25 In Process (Tylenol Tablet) 17:45 Clear Liq Diet DIET 06/23/25 Transmitted Dinner Morphine Sulfate PHA 06/23/25 In Process Injection 17:45 Nitroglycerin PHA 06/23/25 In Process Sublingual (Ntrostat 17:45 Morphine Sulfate PHA 06/23/25 In Process Injection 17:45 Stat Ekg For Chest KOLE 06/23/25 In Process Pain 17:39 Notify Of Changes KOLE 06/23/25 In Process From Base 17:39 Travel Clerk For [facility] 06/23/25 In Process 24 Hours 17:39 Emergency Dysrhythmia KOLE 06/23/25 In Process Protocol 17:39 Rhythm Strips Once [facility] 06/23/25 In Process Every Shift 17:39 Oxygen By Nasal RT 06/23/25 Transmitted Cannula 17:39 * Gi Dvh Quill Stripper CONS 06/23/25 Transmitted 17:39 Piperacillin-Tazob PHA 06/24/25 In Process 3.375gm (Zosyn 3.375g 02:00 Amiodarone Tablet PHA 06/24/25 In Process (Cordarone Tablet) 22:00 Metoprolol Tartrate PHA 06/24/25 In Process Tablet (Lopressor Ta 22:00 Apixaban (Eliquis) PHA 06/24/25 In Process 22:00 * Cardiology Consult CONS 06/24/25 Transmitted 13:40 Date of Service: Jun 24, 2025 Billing Provider: LISSY MINOR MD Common Visit Codes: NOT BILLABLE LISSY MINOR MD Jun 24, 2025 17:11
[2025-06-24] MEDS ORDERED: DOCUSATE SOD 100 MG CAP PO PRN (19:15)
[2025-06-24] MEDS: METOPROLOL TARTRATE 25 MG TAB PO SCH (20:59)
[2025-06-24] MEDS: GABAPENTIN 100 MG CAP PO SCH (21:06)
[2025-06-24] MEDS ORDERED: APIXABAN 2.5 MG TAB PO SCH (22:00)
[2025-06-24] MEDS: MELATONIN 5 MG TAB PO SCH (22:00)
[2025-06-24] MEDS: AMIODARONE HCL 200 MG TAB PO SCH (22:00)
[2025-06-24] MEDS: LOSARTAN POTASSIUM 50 MG TAB PO SCH (23:22)
--- NOTE | 2025-06-24 23:46 | DVHINCON2 ---
Date of service: Jun 24, 2025 Referring Physician Freddy Reason for Consultation Tachycardia History of Present Illness This is an 89 year-ol female with a PMH of HTN, Breast cancer, and Neuropathy who was brought in by EMS On 06/23/25 due to complaint of RLQ abdominal pain with associated N/V x3 days. Patient reports RLQ abdominal pain radiates throughout lower abdomen. WBC 11.8, NA 146, K 3.3, AST 87, ALT 126. CT ABD PEL showed thickening of the wall of the colon measuring 8-9 mm with stool in the lumen. Questionable colitis. Splenomegaly with the spleen measuring 14.8 cm long.Patient was admitted to the hospital. I am asked to consult on this patient. Family History: Patient reports no known family medical history. Allergies: Coded Allergies: NO KNOWN ALLERGIES (Unverified , 05/11/24) Home Meds Active Scripts Metoprolol Tartrate (Lopressor) 25 Mg Tb, 50 MG PO BID for 30 Days, #120 TAB Prov:LISSY MINOR MD 05/16/24 Apixaban Base (ELIQUIS) 2.5 Mg Tab, 2.5 MG PO BID, #60 TAB Prov:LISSY MINOR MD 05/16/24 Amiodarone HCl (Amiodarone HCl) 200 Mg Tab, 200 MG PO BID, #60 TAB Prov:LISSY MINOR MD 05/16/24 Reported Medications Clonidine Hydrochloride (Clonidine Hcl) 0.3 Mg/24 Hr Dis, 0.3 MG PO TID for 30 Days, MG 06/24/25 Aspirin (Aspirin) 325 Mg Tab, 325 MG PO DAILY for 30 Days, MG 06/24/25 Metoprolol Tartrate (Metoprolol Tartrate) 50 Mg Tab, 50 MG PO BID for 30 Days, MG do not take if hr less than 60 do not take if sbp is less then 100 06/24/25 Losartan Potassium (Losartan Potassium) 50 Mg Tab, 50 MG PO BID for 30 Days, MG 06/24/25 Docusate Sodium (Docusate Sodium) 100 Mg Cap, 100 MG PO, CAP 06/24/25 Clopidogrel Bisulfate (CLOPIDOGREL) 75 Mg Tab, 75 MG PO DAILY for 30 Days, MG 06/24/25 Potassium Chloride (POTASSIUM CHLORIDE CR) 10 Meq Tb, 1 TAB PO DAILY, #30 TAB 5 Refills 06/24/25 Furosemide (Furosemide) 40 Mg Tab, 40 MG PO DAILY for 30 Days 06/24/25 Amiodarone Hcl (Amiodarone Hcl) 200 Mg Tab, 200 MG PO BID for 30 Days 06/24/25 Gabapentin (Gabapentin) 100 Mg Cap, 1 CAP PO TID, #90 CAP 2 Refills 06/24/25 Current Medications Current Medications Medications (Trade) Dose Ordered Sig/Dagoberto Route PRN Reason Start Time Stop Time Status Last Admin Enoxaparin Sodium (Lovenox) 30 mg DAILY SC 06/24/25 10:00 06/24/25 10:01 Piperacillin Sod/ Tazobactam Sod 100 ml @ 25 mls/hr Q8H IV 06/24/25 02:00 06/24/25 18:00 Potassium Chloride 100 ml @ 50 mls/hr Q2H IV 06/24/25 03:30 06/24/25 07:29 DC 06/24/25 06:09 Hydralazine HCl (Apresoline Injection) 10 mg Q6HP PRN IV SBP>150 06/24/25 03:30 Amiodarone HCl (Cordarone Tablet) 200 mg BID PO 06/24/25 22:00 Metoprolol Tartrate (Lopressor Tablet) 25 mg BID PO 06/24/25 22:00 06/24/25 20:59 Apixaban (Eliquis) 2.5 mg BID PO 06/24/25 22:00 06/24/25 19:19 DC Potassium Chloride/Sodium Chloride 1,000 ml @ 50 mls/hr Q20H IV 06/24/25 14:15 06/24/25 15:37 DC Clonidine HCl (Catapres Tablet) 0.3 mg BID PO 06/24/25 22:00 06/24/25 21:00 Gabapentin (Neurontin Capsule) 100 mg TID PO 06/24/25 22:00 Furosemide (Lasix Tablet) 40 mg DAILY PO 06/25/25 10:00 Potassium Chloride (Klor-Con Tablet) 10 meq DAILY PO 06/25/25 10:00 Clopidogrel Bisulfate (Plavix) 75 mg DAILY PO 06/25/25 10:00 Docusate Sodium (Colace Capsule) 100 mg DAILY PRN PO FOR CONSTIPATION 06/24/25 19:15 Losartan Potassium (Cozaar Tablet) 50 mg BID PO 06/24/25 22:00 Melatonin (Melatonin) 10 mg HS PO 06/24/25 22:00 Review of Systems Constitutional: denies: chills, diaphoresis, fatigue, fever, malaise, sweats, weakness, others EENTM: denies: blurred vision, double vision, ear bleeding, ear discharge, ear drainage, ear pain, ear ringing, eye pain, eye redness, hearing loss, mouth p ain, mouth swelling, nasal discharge, nose bleeding, nose congestion, nose pain, photophobia, tearing, throat pain, throat swelling, voice changes, others Respiratory: denies: cough, hemoptysis, orthopnea, SOB at rest, shortness of br eath, SOB with excertion, stridor, wheezing, others Cardiovascular: denies: chest pain, dizzy spells, diaphoresis, Dyspnea on exertion, edema, irregular heart beat, left arm pain, lightheadedness, palpitations, PND, syncope, others Gastrointestinal: reports: abdominal pain, nausea, vomiting; denies: abdomen distended, blood streaked bowels, constipated, diarrhea, dysphagia, difficulty swallowing, hematemesis, melena, poor appetite, poor fluid intake, rectal bleeding, rectal pain, others Genitourinary: denies: abnormal vagina bleeding, burning, dyspareunia, dysuria, flank pain, frequency, hematuria, incontinence, pain, , vagina discharge, urgency, others Neurological: denies: dizziness, fainting, headache, left sided numbness, left sided weakness, numbness, paresthesia, pre-existing deficit, right sided numbness, right sided weakness, seizure, speech problems, tingling, tremors, weakness, others Musculoskeletal: denies: back pain, gout, joint pain, joint swelling, muscle pain, muscle stiffness, neck pain, others Integumetry: denies: bruises, change in color, change in hair/nails, dryness, laceration, lesions, lumps, rash, wounds, others Allergic/Immunocompromised: denies: Difficulty Healing, Frequent Infections, Hives, Itching, others Hematologic/Lymphatic: denies: anemia, blood clots, easy bleeding, easy bruising, swollen glands, others Endocrine: denies: excessive hunger, excessive sweating, excessive thirst, excessive urination, flushing, intolerance to cold, intolerance to heat, unexplained weight gain, unexplained weight loss, others Psychiatric: denies: anxiety, bipolar disorder, depression, hopeless, panic disorder, schizophrenia, sleepless, suicidal, others All Other Systems: Reviewed and Negative Vital Signs Vital Signs Date Time Temp Pulse Resp B/P (MAP) Pulse Ox O2 Delivery O2 Flow Rate FiO2 06/24/25 21:00 162/109 06/24/25 20:59 111 06/24/25 17:00 98.6 18 96 98.6 06/24/25 08:00 Nasal Cannula* 1 24 Physical Exam GENERAL: Alert and oriented x 3. No acute distress. EYES: PERRL, EOMI. Anicteric. HENT: Moist mucous membranes. LUNGS: Clear to auscultation bilaterally. CARDIOVASCULAR: Regular rate and rhythm. ABDOMEN: Soft, nontender and nondistended. EXTREMITIES: No edema. NEUROLOGIC: No focal neurological deficits. SKIN: Warm, dry. Labs/Diagnostic Data Labs Test 06/24/25 06:17 06/24/25 02:04 Range/Units Sodium Level 146 H 136-145 mmol/L Potassium Level 3.3 L 3.5-5.1 mmol/L Chloride Level 103 98-107 mmol/L Carbon Dioxide Level 31 20-31 mmol/L Anion Gap 12 5-15 Blood Urea Nitrogen 12 9-23 mg/dL Creatinine 0.69 0.550-1.02 mg/dL Glomerular Filtration Rate Calc 84 >90 mL/min BUN/Creatinine Ratio 17.4 10.0-20.0 Serum Glucose 121 H 74-106 mg/dL Calcium Level 9.1 8.7-10.4 mg/dL Total Bilirubin 1.1 H 0.2-1.0 mg/dL Aspartate Amino Transferase (AST) 87 H 13-40 U/L Alanine Aminotransferase (ALT) 126 H 7-40 U/L Alkaline Phosphatase 123 H 46-116 U/L Total Protein 5.9 5.7-8.2 g/dL Albumin 4.0 3.2-4.8 g/dL White Blood Count 11.8 H 4.4-10.8 10^3/uL Red Blood Count 5.01 4.0-5.20 10^6/uL Hemoglobin 15.7 12.2-16.2 g/dL Hematocrit 44.4 36.0-46.0 % Mean Corpuscular Volume 88.5 80.0-100.0 fL Mean Corpuscular Hemoglobin 31.3 28.0-32.0 pg Mean Corpuscular Hemoglobin Concent 35.4 32.0-36.0 g/dL Red Cell Distribution Width 14.3 11.8-14.3 % Platelet Count 189 140-450 10^3/uL Mean Platelet Volume 7.0 6.9-10.8 fL Neutrophils (%) (Auto) 85.8 H 37.0-80.0 % Lymphocytes (%) (Auto) 5.2 L 10.0-50.0 % Monocytes (%) (Auto) 8.7 0.0-12.0 % Eosinophils (%) (Auto) 0.0 0.0-7.0 % Basophils (%) (Auto) 0.3 0.0-2.0 % Neutrophils # (Auto) 10.1 H 1.6-8.6 10 ^3/uL Lymphocytes # (Auto) 0.6 0.4-5.4 10 ^3/uL Monocytes # (Auto) 1.0 0-1.3 10 ^3/uL Eosinophils # (Auto) 0 0-0.8 10 ^3/uL Basophils # (Auto) 0 0-0.2 10 ^3/uL Nucleated Red Blood Cells 0.2 % Magnesium Level 1.7 1.6-2.6 mg/dL Assessment Colitis. Abdominal pain nausea vomiting. Hypertension. History of breast cancer status post-chemoradiation. AFib with a RVR. Plan/Recommendation I agree with your ongoing assessment and care of plan. Morphine and [place] for pain management. Amiodarone. Clonidine, Losartan. Plavix, Metoprolol. DVT prophylactics. Diuretics with Lasix. IV Hydralazine for SBP > 150. IV antibiotics as ordered. Additional plan as per the hospital course. A total of 45 minutes was spent reviewing the patient record, examining the patient, making a diagnostic and therapeutic plan, discussing this plan with medical personnel, following up on diagnostic studies and following the patient for clinical stability excluding any and all procedures. At least 50% of this time was spent in direct, [id number] contact. Plan discussed with: Patient KENN SHORT MD Jun 24, 2025 21:56
[2025-06-25] VITALS (7 sets, daily range): BP systolic 125–177; BP diastolic 66–94; PULSE 58–81; RESP 16–20; TEMP 97.4–97.7; O2SAT 95–98
[2025-06-25] MEDS: hydrALAZINE HCL 20 MG/ML VL IV PRN (06:18)
--- NOTE | 2025-06-25 08:03 | ECG ---
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
[2025-06-25] MEDS: POTASSIUM CHL 10 Meq TABLET PO SCH (09:07)
[2025-06-25] MEDS: CLOPIDOGREL BISULFATE 75 MG TAB PO SCH (09:12)
[2025-06-25] MEDS: FUROSEMIDE 40 MG TAB PO SCH (09:17)
[2025-06-25 16:30] LABS: Albumin 3.6 g/dL (3.2-4.8); Alkaline Phosphatase 103 U/L (46-116); Anion Gap 10 (5-15); BUN/Creatinine Ratio 10.7 (10.0-20.0); Carbon Dioxide 30 mmol/L (20-31); Chloride 104 mmol/L (98-107); Sodium 144 mmol/L (136-145)
[2025-06-25 16:31] LABS: Alanine Aminotransferase 107 U/L (7-40); Bilirubin, Total 0.9 mg/dL (0.2-1.0); Blood Urea Nitrogen 8 mg/dL (9-23); Calcium 8.5 mg/dL (8.7-10.4); Glucose 131 mg/dL (74-106); Magnesium 1.5 mg/dL (1.6-2.6); Potassium 2.9 mmol/L (3.5-5.1); Total Protein 5.3 g/dL (5.7-8.2)
--- NOTE | 2025-06-25 16:46 | DVHPN2 ---
Subjective Overnight events noted. Patient has a electrolyte imbalance, denies any abdominal pain tolerating diet. 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 Medications Current Medications Medications Dose Ordered Sig/Dagoberto Route Start Time Stop Time Status Last Admin Dose Admin Sodium Chloride 1,000 ml @ 120 mls/hr Q8H20M IV 06/23/25 17:45 06/24/25 19:02 120 MLS/HR Acetaminophen/ Hydrocodone Bitart 1 tab Q4HP PRN PO 06/23/25 17:45 06/24/25 01:40 1 TAB Ondansetron HCl 4 mg Q4HP PRN IV 06/23/25 17:45 06/23/25 21:56 4 MG Enoxaparin Sodium 30 mg DAILY SC 06/24/25 10:00 06/25/25 09:05 30 MG Acetaminophen 650 mg Q6HP PRN PO 06/23/25 17:45 Morphine Sulfate 2 mg Q4HPRN PRN IV 06/23/25 17:45 06/24/25 02:48 2 MG Nitroglycerin 0.4 mg Q5MINP PRN SL 06/23/25 17:45 Morphine Sulfate 2 mg Q30M PRN IV 06/23/25 17:45 Piperacillin Sod/ Tazobactam Sod 100 ml @ 25 mls/hr Q8H IV 06/24/25 02:00 06/25/25 09:03 25 MLS/HR Hydralazine HCl 10 mg Q6HP PRN IV 06/24/25 03:30 06/25/25 06:18 10 MG Amiodarone HCl 200 mg BID PO 06/24/25 22:00 06/25/25 09:14 200 MG Metoprolol Tartrate 25 mg BID PO 06/24/25 22:00 06/25/25 09:16 25 MG Clonidine HCl 0.3 mg BID PO 06/24/25 22:00 06/25/25 09:07 0.3 MG Gabapentin 100 mg TID PO 06/24/25 22:00 Furosemide 40 mg DAILY PO 06/25/25 10:00 06/25/25 09:17 40 MG Potassium Chloride 10 meq DAILY PO 06/25/25 10:00 06/25/25 09:07 10 MEQ Clopidogrel Bisulfate 75 mg DAILY PO 06/25/25 10:00 06/25/25 09:12 75 MG Docusate Sodium 100 mg DAILY PRN PO 06/24/25 19:15 Losartan Potassium 50 mg BID PO 06/24/25 22:00 06/25/25 09:14 50 MG Melatonin 10 mg HS PO 06/24/25 22:00 Potassium Chloride 100 ml @ 50 mls/hr Q2H IV 06/25/25 16:45 06/25/25 20:44 UNV Magnesium Sulfate/ Dextrose 100 ml @ 100 mls/hr Q1HR IV 06/25/25 17:00 06/25/25 19:59 UNV Magnesium Oxide 400 mg BID PO 06/25/25 22:00 UNV Laboratory Results Laboratory Tests 06/24/25 02:04 06/25/25 15:45 Chemistry Test 06/25/25 15:45 Albumin 3.6 g/dL (3.2-4.8) Calcium Level 8.5 mg/dL (8.7-10.4) L Magnesium Level 1.5 mg/dL (1.6-2.6) L Total Protein 5.3 g/dL (5.7-8.2) L Cardiac Markers Test 06/25/25 15:45 B-Type Natriuretic Peptide 498.67 pg/mL (0-100) LFT Test 06/25/25 15:45 Alanine Aminotransferase (ALT) 107 U/L (7-40) H Alkaline Phosphatase 103 U/L (46-116) Aspartate Amino Transferase (AST) 69 U/L (13-40) H Total Bilirubin 0.9 mg/dL (0.2-1.0) Assessment/Plan Assessment/Plan 89-year-old female with a known history of breast cancer status post lumpectomy status post chemoradiation, hypertension presented to the hospital with the abdominal pain nausea vomiting found to have 1. Colitis 2. Abdominal pain nausea vomiting 2/2 above 3. Hypertension 4. History of breast cancer status post-chemoradiation 5. AFib with a RVR, currently controlled 6. Electrolyte imbalance -resume home medications including amiodarone, beta juan and Eliquis -continue antibiotics, replace electrolytes -physical therapy evaluation and treatment. Plan discussed with: Patient My Orders Orders - LISSY MINOR MD Procedure Category Date Status Time Clonidine Hcl Tablet PHA 06/24/25 In Process (Catapres Tablet) 22:00 Gabapentin Capsule PHA 06/24/25 In Process (Neurontin Capsule) 22:00 Furosemide Tablet PHA 06/25/25 In Process (Lasix Tablet) 10:00 Potassium Er Tablet PHA 06/25/25 In Process (Klor-Con Tablet) 10:00 Clopidogrel Bisulfate PHA 06/25/25 In Process (Plavix) 10:00 Docusate Sodium PHA 06/24/25 In Process Capsule (Colace 19:15 Losartan Tablet PHA 06/24/25 In Process (Cozaar Tablet) 22:00 Melatonin (Melatonin) PHA 06/24/25 In Process 22:00 Potassium Effervesent PHA 06/25/25 Logged Tab (Klor-Con/Ef) 16:45 Potassium Chl PHA 06/25/25 Logged 20meq/100ml 16:45 Magnesium Sulfate PHA 06/25/25 Logged 1gm/100ml 17:00 Magnesium Oxide PHA 06/25/25 Logged Tablet (Mag-Ox Tablet) 22:00 Date of Service: Jun 25, 2025 Billing Provider: LISSY MINOR MD Common Visit Codes: NOT BILLABLE LISSY MINOR MD Jun 25, 2025 16:46
[2025-06-25] MEDS: POTASSIUM CHL 20MEQ/100ML 100 ML IV SCH (17:31)
[2025-06-25] MEDS: MAGNESIUM SULFATE 1GM/100ML 100 ML IV SCH ×2 (17:34→23:54)
[2025-06-25] MEDS: POTASSIUM EFFERVESENT TAB 25 MEQ PO ONE (17:40)
[2025-06-25] MEDS: MAGNESIUM OXIDE 400 MG TAB PO SCH (21:22)
--- NOTE | 2025-06-25 22:43 | DVHPN2 ---
Progress Note - Dictate Date Seen: Jun 25, 2025 Medical Necessity Reason Pt with a Central, PICC or Fol: No Subjective Patient was seen and evaluated in follow up. Patient is complaining of RLQ abdominal pain. Patient endorses having diarrhea. K 2.9. Telemetry reviewed. vital signs Vital Sign Date Time Temp Pulse Resp B/P (MAP) Pulse Ox O2 Delivery O2 Flow Rate FiO2 06/25/25 09:17 155/73 06/25/25 09:16 78 06/25/25 09:00 97.6 18 98 97.6 06/25/25 08:00 Nasal Cannula* 2 28 Total Intake and Output 06/24/25 06/24/25 06/25/25 15:00 23:00 07:00 Intake Total 510 ml 340 ml Output Total 600 ml 2 ml Balance -90 ml 338 ml medications Current Medications Medications Dose Ordered Sig/Dagoberto Route Start Time Stop Time Status Last Admin Dose Admin Sodium Chloride 1,000 ml @ 120 mls/hr Q8H20M IV 06/23/25 17:45 06/24/25 19:02 120 MLS/HR Acetaminophen/ Hydrocodone Bitart 1 tab Q4HP PRN PO 06/23/25 17:45 06/24/25 01:40 1 TAB Ondansetron HCl 4 mg Q4HP PRN IV 06/23/25 17:45 06/23/25 21:56 4 MG Enoxaparin Sodium 30 mg DAILY SC 06/24/25 10:00 06/25/25 09:05 30 MG Acetaminophen 650 mg Q6HP PRN PO 06/23/25 17:45 Morphine Sulfate 2 mg Q4HPRN PRN IV 06/23/25 17:45 06/24/25 02:48 2 MG Nitroglycerin 0.4 mg Q5MINP PRN SL 06/23/25 17:45 Morphine Sulfate 2 mg Q30M PRN IV 06/23/25 17:45 Piperacillin Sod/ Tazobactam Sod 100 ml @ 25 mls/hr Q8H IV 06/24/25 02:00 06/25/25 09:03 25 MLS/HR Hydralazine HCl 10 mg Q6HP PRN IV 06/24/25 03:30 06/25/25 06:18 10 MG Amiodarone HCl 200 mg BID PO 06/24/25 22:00 06/25/25 09:14 200 MG Metoprolol Tartrate 25 mg BID PO 06/24/25 22:00 06/25/25 09:16 25 MG Clonidine HCl 0.3 mg BID PO 06/24/25 22:00 06/25/25 09:07 0.3 MG Gabapentin 100 mg TID PO 06/24/25 22:00 Furosemide 40 mg DAILY PO 06/25/25 10:00 06/25/25 09:17 40 MG Potassium Chloride 10 meq DAILY PO 06/25/25 10:00 06/25/25 09:07 10 MEQ Clopidogrel Bisulfate 75 mg DAILY PO 06/25/25 10:00 06/25/25 09:12 75 MG Docusate Sodium 100 mg DAILY PRN PO 06/24/25 19:15 Losartan Potassium 50 mg BID PO 06/24/25 22:00 06/25/25 09:14 50 MG Melatonin 10 mg HS PO 06/24/25 22:00 objective GENERAL: Alert and oriented x 3. No acute distress. EYES: PERRL, EOMI. Anicteric. HENT: Moist mucous membranes. LUNGS: Clear to auscultation bilaterally. CARDIOVASCULAR: Regular rate and rhythm. ABDOMEN: Soft, nontender and nondistended. EXTREMITIES: No edema. NEUROLOGIC: No focal neurological deficits. SKIN: Warm, dry. laboratory and microbiology Laboratory Tests 06/24/25 06:17 06/24/25 02:04 Test 06/24/25 06:17 Range/Units Serum Glucose 121 H 74-106 mg/dL Problem List Colitis. Abdominal pain nausea vomiting. Hypertension. History of breast cancer status post-chemoradiation. AFib with a RVR. Assessment/Plan Continued all current supportive medical care. Morphine and [place] for pain management. Amiodarone. Clonidine, Losartan. Plavix, Metoprolol. DVT prophylactics. Diuretics with Lasix. IV Hydralazine for SBP > 150. IV antibiotics as ordered. Additional plan as per the hospital course. Plan discussed with: Patient KENN SHORT MD Jun 25, 2025 13:35
[2025-06-26] VITALS (9 sets, daily range): BP systolic 125–191; BP diastolic 60–97; PULSE 55–66; RESP 16–18; TEMP 97–98.4; O2SAT 93–97
--- NOTE | 2025-06-26 09:32 | DVHINCON2 ---
GI Consult Consult Note GI consult note Date of Consultation: 06/26/2025 Chief Complaint: Colitis Referring Physician: Dr. Hayes H&P: 89-year-old female with past medical history of hypertension and breast cancer presented to the hospital with complains of abdominal pain nausea and vomiting. Patient says abdominal pain has improved now. Denies nausea or vomiting. Patient has diarrhea for the last four days worse on the 1st day when it 1st started, no melena or red blood in stool. Unsure if colonoscopy ever done in the past. Patient has no fevers but has chills Past Medical History: HTN, breast cancer Past Surgical History: Left breast lumpectomy Social History: NO smoking, drinking ETOH and use of illegal drugs. Family History: Noncontributory Review of Systems: Constitutional: no fever, chill, weight loss HEENT: no eye pain, no hearing loss, no oral lesion, no scleral icterus Heart: no chest pain, no chest pressure Lung: no cough, no dyspnea with exertion Abdomen: see HPI Physical exam: General: NAD, AAOX3 Chest: lung [place] clear to auscultation Heart: RRR, no murmur Abdomen: non-distended, no tenderness to palpation, +BS Labs: Labs Test 06/25/25 15:45 06/24/25 02:04 Range/Units Sodium Level 144 136-145 mmol/L Potassium Level 2.9 L 3.5-5.1 mmol/L Chloride Level 104 98-107 mmol/L Carbon Dioxide Level 30 20-31 mmol/L Anion Gap 10 5-15 Blood Urea Nitrogen 8 L 9-23 mg/dL Creatinine 0.75 0.550-1.02 mg/dL Glomerular Filtration Rate Calc 77 >90 mL/min BUN/Creatinine Ratio 10.7 10.0-20.0 Serum Glucose 131 H 74-106 mg/dL Calcium Level 8.5 L 8.7-10.4 mg/dL Magnesium Level 1.5 L 1.6-2.6 mg/dL Total Bilirubin 0.9 0.2-1.0 mg/dL Aspartate Amino Transferase (AST) 69 H 13-40 U/L Alanine Aminotransferase (ALT) 107 H 7-40 U/L Alkaline Phosphatase 103 46-116 U/L B-Type Natriuretic Peptide 498.67 0-100 pg/mL Total Protein 5.3 L 5.7-8.2 g/dL Albumin 3.6 3.2-4.8 g/dL White Blood Count 11.8 H 4.4-10.8 10^3/uL Red Blood Count 5.01 4.0-5.20 10^6/uL Hemoglobin 15.7 12.2-16.2 g/dL Hematocrit 44.4 36.0-46.0 % Mean Corpuscular Volume 88.5 80.0-100.0 fL Mean Corpuscular Hemoglobin 31.3 28.0-32.0 pg Mean Corpuscular Hemoglobin Concent 35.4 32.0-36.0 g/dL Red Cell Distribution Width 14.3 11.8-14.3 % Platelet Count 189 140-450 10^3/uL Mean Platelet Volume 7.0 6.9-10.8 fL Neutrophils (%) (Auto) 85.8 H 37.0-80.0 % Lymphocytes (%) (Auto) 5.2 L 10.0-50.0 % Monocytes (%) (Auto) 8.7 0.0-12.0 % Eosinophils (%) (Auto) 0.0 0.0-7.0 % Basophils (%) (Auto) 0.3 0.0-2.0 % Neutrophils # (Auto) 10.1 H 1.6-8.6 10 ^3/uL Lymphocytes # (Auto) 0.6 0.4-5.4 10 ^3/uL Monocytes # (Auto) 1.0 0-1.3 10 ^3/uL Eosinophils # (Auto) 0 0-0.8 10 ^3/uL Basophils # (Auto) 0 0-0.2 10 ^3/uL Nucleated Red Blood Cells 0.2 % Imaging: CT abdomen pelvis IMPRESSION: 1. Thickening of the wall of the colon measuring 8-9 mm with stool in the lumen. Questionable colitis. Correlate with the clinical setting. 2. Splenomegaly with the spleen measuring 14.8 cm long. Assessment: Diarrhea Colitis Abdominal pain improving Plan: Discussed with Dr. Yañez Stool for culture and WBC IV antibiotics Diet as tolerated We will continue to monitor patient Plan discussed with patient and staff Date of Service: Jun 26, 2025 Billing Provider: ZAK HOBBS Common Visit Codes: CONSULT ONLY Consultation Codes: [id number] CONSULT <60MIN ZAK HOBBS Jun 26, 2025 09:31
[2025-06-26 14:55] LABS: Chloride 101 mmol/L (98-107); Sodium 138 mmol/L (136-145)
[2025-06-26 14:56] LABS: Anion Gap 8 (5-15); Carbon Dioxide 29 mmol/L (20-31)
[2025-06-26 14:59] LABS: Calcium 8.2 mg/dL (8.7-10.4); Potassium 2.9 mmol/L (3.5-5.1)
[2025-06-26 15:01] LABS: BUN/Creatinine Ratio 9.1 (10.0-20.0)
[2025-06-26 15:02] LABS: Blood Urea Nitrogen 7 mg/dL (9-23); Glucose 176 mg/dL (74-106); Magnesium 1.9 mg/dL (1.6-2.6)
[2025-06-26] MEDS: POTASSIUM EFFERVESENT TAB 25 MEQ PO ONE (15:45)
[2025-06-26] MEDS: MAGNESIUM OXIDE 400 MG TAB PO ONE (15:46)
[2025-06-26] MEDS ORDERED: FLUC200T50 PO (15:48)
[2025-06-26] MEDS ORDERED: AUG875T PO (15:52)
[2025-06-26] MEDS ORDERED: POTA-36 PO (15:52)
[2025-06-26] MEDS ORDERED: FLUCONAZOLE 100 MG TAB PO ONE (16:00)
--- NOTE | 2025-06-26 16:00 | DVHDS2 ---
Discharge Summary Date of Admission Jun 23, 2025 at 17:39 Date of Discharge: Jun 26, 2025 Labs/Diagnostic Data: Laboratory Results Test 06/26/25 14:13 06/25/25 15:45 06/24/25 02:04 Sodium Level 138 mmol/L (136-145) Potassium Level 2.9 mmol/L (3.5-5.1) Chloride Level 101 mmol/L (98-107) Carbon Dioxide Level 29 mmol/L (20-31) Anion Gap 8 (5-15) Blood Urea Nitrogen 7 mg/dL (9-23) Creatinine 0.77 mg/dL (0.550-1.02) Glomerular Filtration Rate Calc 75 mL/min (>90) BUN/Creatinine Ratio 9.1 (10.0-20.0) Serum Glucose 176 mg/dL (74-106) Calcium Level 8.2 mg/dL (8.7-10.4) Magnesium Level 1.9 mg/dL (1.6-2.6) Total Bilirubin 0.9 mg/dL (0.2-1.0) Aspartate Amino Transferase (AST) 69 U/L (13-40) Alanine Aminotransferase (ALT) 107 U/L (7-40) Alkaline Phosphatase 103 U/L (46-116) B-Type Natriuretic Peptide 498.67 pg/mL (0-100) Total Protein 5.3 g/dL (5.7-8.2) Albumin 3.6 g/dL (3.2-4.8) White Blood Count 11.8 10^3/uL (4.4-10.8) Red Blood Count 5.01 10^6/uL (4.0-5.20) Hemoglobin 15.7 g/dL (12.2-16.2) Hematocrit 44.4 % (36.0-46.0) Mean Corpuscular Volume 88.5 fL (80.0-100.0) Mean Corpuscular Hemoglobin 31.3 pg (28.0-32.0) Mean Corpuscular Hemoglobin Concent 35.4 g/dL (32.0-36.0) Red Cell Distribution Width 14.3 % (11.8-14.3) Platelet Count 189 10^3/uL (140-450) Mean Platelet Volume 7.0 fL (6.9-10.8) Neutrophils (%) (Auto) 85.8 % (37.0-80.0) Lymphocytes (%) (Auto) 5.2 % (10.0-50.0) Monocytes (%) (Auto) 8.7 % (0.0-12.0) Eosinophils (%) (Auto) 0.0 % (0.0-7.0) Basophils (%) (Auto) 0.3 % (0.0-2.0) Neutrophils # (Auto) 10.1 10 ^3/uL (1.6-8.6) Lymphocytes # (Auto) 0.6 10 ^3/uL (0.4-5.4) Monocytes # (Auto) 1.0 10 ^3/uL (0-1.3) Eosinophils # (Auto) 0 10 ^3/uL (0-0.8) Basophils # (Auto) 0 10 ^3/uL (0-0.2) Nucleated Red Blood Cells 0.2 % Other Laboratory Tests 06/26/25 14:13 06/24/25 02:04 Brief Hx & Hospital Course: 89-year-old female with a known history of breast cancer status post lumpectomy status post chemoradiation, hypertension presented to the hospital with the abdominal pain nausea vomiting found to have colitis. Patient was started on IV antibiotics has been IV hydration. Patient's hospital course was eventful for AFib with a RVR regarding beta-juan and Eliquis. Cardiology has been as GI was on board. Patient is currently pain is better controlled and she is stable to be discharged on p.o. antibiotics. Patient's potassium was lobe has been as Mag was low which were replaced. Home supplement potassium has been given follow up with the PCP with a repeat BNP in one week. Condition at Discharge: Stable Final Diagnosis/Problems List 89-year-old female with a known history of breast cancer status post lumpectomy status post chemoradiation, hypertension presented to the hospital with the abdominal pain nausea vomiting found to have 1. Colitis 2. Abdominal pain nausea vomiting 2/2 above 3. Hypertension 4. History of breast cancer status post-chemoradiation 5. AFib with a RVR, currently controlled 6. Electrolyte imbalance Discharge Disposition: Home with Health Services SNF Discharge Will this Physician continue t: No Discharge Instruct/Medications Diet: Cardiac 2g Na,low cholest Activity: No Restrictions, As Tolerated Follow Up/Referral: Follow up with the PCP in 1-2 weeks Follow up with the GI and Cardiology in 1-2 weeks. Medications: Augmentin and potassium chloride as prescribed. Scheduled Amiodarone HCl (Amiodarone HCl), 200 MG PO BID Amiodarone Hcl (Amiodarone Hcl), 200 MG PO BID, (Reported) Amoxicillin & Pot Clavulanate (Augmentin Tablet), 875 MG PO BID Apixaban Base (Eliquis), 2.5 MG PO BID Aspirin (Aspirin), 325 MG PO DAILY, (Reported) Clonidine Hydrochloride (Clonidine Hcl), 0.3 MG PO TID, (Reported) Clopidogrel Bisulfate (Clopidogrel), 75 MG PO DAILY, (Reported) Furosemide (Furosemide), 40 MG PO DAILY, (Reported) Gabapentin (Gabapentin), 1 CAP PO TID, (Reported) Losartan Potassium (Losartan Potassium), 50 MG PO BID, (Reported) Metoprolol Tartrate (Lopressor), 50 MG PO BID Metoprolol Tartrate (Metoprolol Tartrate), 50 MG PO BID, (Reported) Potassium Chloride (Potassium Chloride Cr), 1 TAB PO DAILY, (Reported) Potassium Chloride (Potassium Chloride Cr), 1 TAB PO DAILY Miscellaneous Medications Docusate Sodium (Docusate Sodium), 100 MG PO, (Reported) Discharge Statement: "Patient was advised to return to the ER or call 911 if any headaches, dizziness, shortness of breath, chest pain, abdominal pain, bleeding, fevers, or worsening of medical condition. Patient was counseled about treatment plan, medications, possible side effects, patientverbalized understanding. All questions were answered to the best of my ability. This discharge took greater then 30 minutes in planning, reviewing documentation, counseling the patient, and discussing with other team members." ASSESSMENT ASSESSMENT Assessment 89-year-old female with a known history of breast cancer status post lumpectomy status post chemoradiation, hypertension presented to the hospital with the abdominal pain nausea vomiting found to have 1. Colitis 2. Abdominal pain nausea vomiting 2/2 above 3. Hypertension 4. History of breast cancer status post-chemoradiation 5. AFib with a RVR, currently controlled 6. Electrolyte imbalance Date of Service: Jun 26, 2025 Billing Provider: LISSY MINOR MD Common Visit Codes: NOT BILLABLE LISSY MINOR MD Jun 26, 2025 16:00
[2025-06-26] MEDS: POTASSIUM CHL 20MEQ/100ML 100 ML IV SCH (16:45)
[2025-06-26 21:58] LABS: Chloride 102 mmol/L (98-107); Potassium 4.1 mmol/L (3.5-5.1); Sodium 139 mmol/L (136-145)
[2025-06-26 21:59] LABS: Anion Gap 8 (5-15); Carbon Dioxide 29 mmol/L (20-31)
[2025-06-26 22:01] LABS: Calcium 8.5 mg/dL (8.7-10.4)
[2025-06-26 22:05] LABS: BUN/Creatinine Ratio 8.5 (10.0-20.0); Blood Urea Nitrogen 6 mg/dL (9-23); Glucose 113 mg/dL (74-106)
--- NOTE | 2025-06-26 22:48 | DVHPN2 ---
Progress Note - Dictate Date Seen: Jun 26, 2025 Medical Necessity Reason Pt with a Central, PICC or Fol: No Subjective Patient was seen and evaluated in follow up. No overnight events. Patient reports her abdominal pain is improving. Patient continues to have diarrhea. Pending stool culture. Telemetry reviewed. vital signs Vital Sign Date Time Temp Pulse Resp B/P (MAP) Pulse Ox O2 Delivery O2 Flow Rate FiO2 06/26/25 09:59 64 185/84 06/26/25 09:00 97.8 16 96 97.8 06/26/25 08:00 Nasal Cannula* 2 28 Total Intake and Output 06/25/25 06/25/25 06/26/25 15:00 23:00 07:00 Intake Total 100 ml 600 ml 1070 ml Output Total 0 ml Balance 100 ml 600 ml 1070 ml medications Current Medications Medications Dose Ordered Sig/Dagoberto Route Start Time Stop Time Status Last Admin Dose Admin Sodium Chloride 1,000 ml @ 120 mls/hr Q8H20M IV 06/23/25 17:45 06/25/25 19:45 120 MLS/HR Acetaminophen/ Hydrocodone Bitart 1 tab Q4HP PRN PO 06/23/25 17:45 06/24/25 01:40 1 TAB Ondansetron HCl 4 mg Q4HP PRN IV 06/23/25 17:45 06/23/25 21:56 4 MG Enoxaparin Sodium 30 mg DAILY SC 06/24/25 10:00 06/26/25 09:52 30 MG Acetaminophen 650 mg Q6HP PRN PO 06/23/25 17:45 Morphine Sulfate 2 mg Q4HPRN PRN IV 06/23/25 17:45 06/24/25 02:48 2 MG Nitroglycerin 0.4 mg Q5MINP PRN SL 06/23/25 17:45 Morphine Sulfate 2 mg Q30M PRN IV 06/23/25 17:45 Piperacillin Sod/ Tazobactam Sod 100 ml @ 25 mls/hr Q8H IV 06/24/25 02:00 06/26/25 09:45 25 MLS/HR Hydralazine HCl 10 mg Q6HP PRN IV 06/24/25 03:30 06/25/25 23:28 10 MG Amiodarone HCl 200 mg BID PO 06/24/25 22:00 06/26/25 09:58 200 MG Metoprolol Tartrate 25 mg BID PO 06/24/25 22:00 06/26/25 09:59 25 MG Clonidine HCl 0.3 mg BID PO 06/24/25 22:00 06/26/25 09:55 0.3 MG Gabapentin 100 mg TID PO 06/24/25 22:00 Furosemide 40 mg DAILY PO 06/25/25 10:00 06/26/25 09:58 40 MG Potassium Chloride 10 meq DAILY PO 06/25/25 10:00 06/26/25 09:57 10 MEQ Clopidogrel Bisulfate 75 mg DAILY PO 06/25/25 10:00 06/26/25 09:57 75 MG Docusate Sodium 100 mg DAILY PRN PO 06/24/25 19:15 Losartan Potassium 50 mg BID PO 06/24/25 22:00 06/26/25 09:58 50 MG Melatonin 10 mg HS PO 06/24/25 22:00 Magnesium Oxide 400 mg BID PO 06/25/25 22:00 06/26/25 10:00 400 MG Metronidazole 100 ml @ 100 mls/hr Q8HR IV 06/26/25 14:00 UNV objective GENERAL: Alert and oriented x 3. No acute distress. EYES: PERRL, EOMI. Anicteric. HENT: Moist mucous membranes. LUNGS: Clear to auscultation bilaterally. CARDIOVASCULAR: Regular rate and rhythm. ABDOMEN: Soft, nontender and nondistended. EXTREMITIES: No edema. NEUROLOGIC: No focal neurological deficits. SKIN: Warm, dry. laboratory and microbiology Laboratory Tests 06/25/25 15:45 06/24/25 02:04 Test 06/25/25 15:45 Range/Units Serum Glucose 131 H 74-106 mg/dL Problem List Colitis. Abdominal pain nausea vomiting. Hypertension. History of breast cancer status post-chemoradiation. AFib with a RVR. Assessment/Plan Continued all current supportive medical care. Morphine and [place] for pain management. Amiodarone. Clonidine, Losartan. Plavix, Metoprolol. DVT prophylactics. Diuretics with Lasix. IV antibiotics as ordered. Additional plan as per the hospital course. Plan discussed with: Patient KENN SHORT MD Jun 26, 2025 13:04
[2025-06-26] MEDS: MAGNESIUM SULFATE 1GM/100ML 100 ML IV ONE (23:58)
[2025-06-27 05:00] VITALS: BP 156/75; PULSE 58; RESP 17; TEMP 97.5; O2SAT 94
[2025-06-27 07:52] LABS: Albumin 3.3 g/dL (3.2-4.8); Alkaline Phosphatase 91 U/L (46-116); Anion Gap 8 (5-15); BUN/Creatinine Ratio 10.0 (10.0-20.0); Carbon Dioxide 27 mmol/L (20-31); Chloride 103 mmol/L (98-107); Magnesium 2.2 mg/dL (1.6-2.6); Potassium 3.9 mmol/L (3.5-5.1); Sodium 138 mmol/L (136-145)
[2025-06-27 07:53] LABS: Bilirubin, Total 1.0 mg/dL (0.2-1.0)
[2025-06-27 08:00] VITALS: PULSE 55
[2025-06-27 08:00] LABS: Alanine Aminotransferase 87 U/L (7-40); Blood Urea Nitrogen 6 mg/dL (9-23); Calcium 8.3 mg/dL (8.7-10.4); Glucose 119 mg/dL (74-106); Total Protein 5.0 g/dL (5.7-8.2)
[2025-06-27] MEDS: POTASSIUM EFFERVESENT TAB 25 MEQ PO ONE (12:32)
[2025-06-27] MEDS: NEUTRA-PHOS TABLET PO ONE (14:20)
--- NOTE | 2025-06-27 14:24 | DVHPN2 ---
Progress Note - Dictate Date Seen: Jun 27, 2025 Medical Necessity Reason Pt with a Central, PICC or Fol: No Subjective No new complaints Patient is sitting up in bed tolerating a diet There was no nausea vomiting or GI bleeding. Patient denies any diarrhea. 3-5 bowel movements are recorded over the last 24 hours Patient has had a colonoscopy many years ago but does not recall the results vital signs Vital Sign Date Time Temp Pulse Resp B/P (MAP) Pulse Ox O2 Delivery O2 Flow Rate FiO2 06/27/25 09:32 138/69 06/27/25 09:31 63 06/27/25 08:00 Nasal Cannula* 2 28 06/27/25 05:00 97.5 17 94 97.5 Total Intake and Output 06/26/25 06/26/25 06/27/25 15:00 23:00 07:00 Intake Total 100 ml 590 ml 1300 ml Balance 100 ml 590 ml 1300 ml medications Current Medications Medications Dose Ordered Sig/Dagoberto Route Start Time Stop Time Status Last Admin Dose Admin Sodium Chloride 1,000 ml @ 120 mls/hr Q8H20M IV 06/23/25 17:45 06/27/25 13:28 120 MLS/HR Acetaminophen/ Hydrocodone Bitart 1 tab Q4HP PRN PO 06/23/25 17:45 06/24/25 01:40 1 TAB Ondansetron HCl 4 mg Q4HP PRN IV 06/23/25 17:45 06/23/25 21:56 4 MG Enoxaparin Sodium 30 mg DAILY SC 06/24/25 10:00 06/27/25 09:33 30 MG Acetaminophen 650 mg Q6HP PRN PO 06/23/25 17:45 Morphine Sulfate 2 mg Q4HPRN PRN IV 06/23/25 17:45 06/24/25 02:48 2 MG Nitroglycerin 0.4 mg Q5MINP PRN SL 06/23/25 17:45 Morphine Sulfate 2 mg Q30M PRN IV 06/23/25 17:45 Hydralazine HCl 10 mg Q6HP PRN IV 06/24/25 03:30 06/27/25 05:45 10 MG Amiodarone HCl 200 mg BID PO 06/24/25 22:00 06/27/25 09:31 200 MG Metoprolol Tartrate 25 mg BID PO 06/24/25 22:00 06/27/25 09:31 25 MG Clonidine HCl 0.3 mg BID PO 06/24/25 22:00 06/27/25 09:31 0.3 MG Gabapentin 100 mg TID PO 06/24/25 22:00 Furosemide 40 mg DAILY PO 06/25/25 10:00 06/27/25 09:32 40 MG Potassium Chloride 10 meq DAILY PO 06/25/25 10:00 06/27/25 09:31 10 MEQ Clopidogrel Bisulfate 75 mg DAILY PO 06/25/25 10:00 06/27/25 09:31 75 MG Docusate Sodium 100 mg DAILY PRN PO 06/24/25 19:15 Losartan Potassium 50 mg BID PO 06/24/25 22:00 06/27/25 09:32 50 MG Melatonin 10 mg HS PO 06/24/25 22:00 Magnesium Oxide 400 mg BID PO 06/25/25 22:00 06/27/25 09:32 400 MG Apixaban 2.5 mg BIDPC PO 06/27/25 19:00 objective General: NAD, AAOX3 Chest: lung [place] clear to auscultation Heart: RRR, no murmur Abdomen: non-distended, no tenderness to palpation, +BS laboratory and microbiology Laboratory Tests 06/27/25 04:50 06/24/25 02:04 Test 06/27/25 04:50 Range/Units Serum Glucose 119 H 74-106 mg/dL Problems(with codes): (1) Uncontrolled diabetes mellitus (2) Nausea & vomiting (3) Hypokalemia (4) Non-specific colitis (5) Atrial flutter Prognosis Plan Continue supportive care Patient is on IV antibiotics Stool tests are pending Patient is awaiting possible transfer to SNF upon discharge Plan discussed with: Patient, Other (Family friend) NISHI PAREDES MD Jun 27, 2025 14:24
[2025-06-27 17:19] VITALS: BP 101/79; PULSE 59; RESP 16; TEMP 98.6; O2SAT 95
[2025-06-27] MEDS: APIXABAN 2.5 MG TAB PO SCH (18:09)
[2025-06-27 20:00] VITALS: PULSE 55; PULSE 56; RESP 16; O2SAT 97
[2025-06-27 21:00] VITALS: BP 152/76; PULSE 55; RESP 16; TEMP 97.5; O2SAT 97
--- NOTE | 2025-06-27 23:53 | DVHPN2 ---
Progress Note - Dictate Date Seen: Jun 27, 2025 Medical Necessity Reason Pt with a Central, PICC or Fol: No Subjective Patient was seen and evaluated in follow up. Patient has no new complaints at this time. Patient denies any cardiac symptoms. Patient is cardiac stable for discharge. Telemetry reviewed. vital signs Vital Sign Date Time Temp Pulse Resp B/P (MAP) Pulse Ox O2 Delivery O2 Flow Rate FiO2 06/27/25 09:32 138/69 06/27/25 09:31 63 06/27/25 08:00 Nasal Cannula* 2 28 06/27/25 05:00 97.5 17 94 97.5 Total Intake and Output 06/26/25 06/26/25 06/27/25 15:00 23:00 07:00 Intake Total 100 ml 590 ml 1300 ml Balance 100 ml 590 ml 1300 ml medications Current Medications Medications Dose Ordered Sig/Dagoberto Route Start Time Stop Time Status Last Admin Dose Admin Sodium Chloride 1,000 ml @ 120 mls/hr Q8H20M IV 06/23/25 17:45 06/27/25 05:21 120 MLS/HR Acetaminophen/ Hydrocodone Bitart 1 tab Q4HP PRN PO 06/23/25 17:45 06/24/25 01:40 1 TAB Ondansetron HCl 4 mg Q4HP PRN IV 06/23/25 17:45 06/23/25 21:56 4 MG Enoxaparin Sodium 30 mg DAILY SC 06/24/25 10:00 06/27/25 09:33 30 MG Acetaminophen 650 mg Q6HP PRN PO 06/23/25 17:45 Morphine Sulfate 2 mg Q4HPRN PRN IV 06/23/25 17:45 06/24/25 02:48 2 MG Nitroglycerin 0.4 mg Q5MINP PRN SL 06/23/25 17:45 Morphine Sulfate 2 mg Q30M PRN IV 06/23/25 17:45 Hydralazine HCl 10 mg Q6HP PRN IV 06/24/25 03:30 06/27/25 05:45 10 MG Amiodarone HCl 200 mg BID PO 06/24/25 22:00 06/27/25 09:31 200 MG Metoprolol Tartrate 25 mg BID PO 06/24/25 22:00 06/27/25 09:31 25 MG Clonidine HCl 0.3 mg BID PO 06/24/25 22:00 06/27/25 09:31 0.3 MG Gabapentin 100 mg TID PO 06/24/25 22:00 Furosemide 40 mg DAILY PO 06/25/25 10:00 06/27/25 09:32 40 MG Potassium Chloride 10 meq DAILY PO 06/25/25 10:00 06/27/25 09:31 10 MEQ Clopidogrel Bisulfate 75 mg DAILY PO 06/25/25 10:00 06/27/25 09:31 75 MG Docusate Sodium 100 mg DAILY PRN PO 06/24/25 19:15 Losartan Potassium 50 mg BID PO 06/24/25 22:00 06/27/25 09:32 50 MG Melatonin 10 mg HS PO 06/24/25 22:00 Magnesium Oxide 400 mg BID PO 06/25/25 22:00 06/27/25 09:32 400 MG objective GENERAL: Alert and oriented x 3. No acute distress. EYES: PERRL, EOMI. Anicteric. HENT: Moist mucous membranes. LUNGS: Clear to auscultation bilaterally. CARDIOVASCULAR: Regular rate and rhythm. ABDOMEN: Soft, nontender and nondistended. EXTREMITIES: No edema. NEUROLOGIC: No focal neurological deficits. SKIN: Warm, dry. laboratory and microbiology Laboratory Tests 06/27/25 04:50 06/24/25 02:04 Test 06/27/25 04:50 Range/Units Serum Glucose 119 H 74-106 mg/dL Problem List Colitis. Abdominal pain nausea vomiting. Hypertension. History of breast cancer status post-chemoradiation. AFib with a RVR. Assessment/Plan Continued all current supportive medical care. Tylenol for pain management. Amiodarone. Clonidine, Losartan. Plavix, Metoprolol. DVT prophylactics. Diuretics with Lasix. IV Hydralazine for SBP > 150. Additional plan as per the hospital course. Plan discussed with: Patient KENN SHORT MD Jun 27, 2025 12:44
== END 2025-06-27 22:11 | DRG 392 ==
LOC: EDBD 14:03 → EDUNIT# 14:03 → ER 14:06 → OVERFLOW 17:39 → TELE-WESTW 06-24 01:05
PROVIDERS: ADMIT Internal Medicine; ATTEND Internal Medicine
DX: A09 Infectious gastroenteritis and colitis, unspecified (principal); I10 Essential (primary) hypertension; E87.6 Hypokalemia; I48.91 Unspecified atrial fibrillation; E11.40 Type 2 diabetes mellitus with diabetic neuropathy, unspecified; Z92.21 Personal history of antineoplastic chemotherapy; Z85.3 Personal history of malignant neoplasm of breast; Z92.3 Personal history of irradiation; Z79.01 Long term (current) use of anticoagulants; Z79.899 Other long term (current) drug therapy
CPT/HCPCS: 36415; 74176; 80048; 80053; 83735; 83880; 84100; 84132; 85025; 93005; 97110; 97116; 97163; 97530; G0378; J2405; J2543; J3480; J3490